=== PATIENT | male | born 1950 | race Caucasian/White ===

== ENCOUNTER → 2016-12-03 | Outpatient (CLI) | payer BC ==
[~2016-12-03] MED LIST: ACT15 PO; ASPCH81X PO; CHOL1000 PO; CLOP1TAB15 PO; GLY/5 PO; LPR25 PO; METF-384 PO; PANT1TAB48 PO; PRAV10TA39 PO; SITA100T3 PO; VITA1CAP4 PO
== END | disposition home or self-care (01) ==
LOC: C.LABSPEC 16:27
PROVIDERS: ATTEND Dermatology
DX: L98.9 Disorder of the skin and subcutaneous tissue, unspecified (principal); C44.310 Basal cell carcinoma of skin of unspecified parts of face; C44.619 Basal cell carcinoma of skin of left upper limb, including shoulder

== ENCOUNTER → 2016-12-03 | Outpatient (CLI) | payer BC | END | disposition home or self-care (01) | LOC: C.PATHSPEC 17:53 | PROVIDERS: ATTEND Dermatology | DX: C44.310 Basal cell carcinoma of skin of unspecified parts of face (principal); C44.619 Basal cell carcinoma of skin of left upper limb, including shoulder ==

== ENCOUNTER → 2017-03-04 | Outpatient (CLI) | payer BC | END | disposition home or self-care (01) | LOC: C.PATHSPEC 11:46 | PROVIDERS: ATTEND Plastic Surgery | DX: C44.310 Basal cell carcinoma of skin of unspecified parts of face (principal); C44.519 Basal cell carcinoma of skin of other part of trunk ==

== ENCOUNTER 2019-03-25 12:51 | Inpatient (IN) ==
[2019-03-25] MEDS ORDERED: SODIUM CHLORIDE 0.9% 250 ML IV PRN (14:00)
[2019-03-25] MEDS ORDERED: SODIUM CHLORIDE 0.9% 1000ML 1,000 ML IV SCH (14:00)
[2019-03-25] MEDS ORDERED: PANTOprazole 80 MG in DEXTROSE 5% 100 ML IV STA (14:05)
[2019-03-25 14:19] LABS: Mean Corpuscular Hgb Conc 33.1 g/dL (32-36)
[2019-03-25 14:27] LABS: Hematocrit (blood only) 33.8 % (42-52); Hemoglobin 11.2 g/dL (14.0-18.0); Mean Corpuscular Hemoglobin 30.4 pg (25-34); Mean Corpuscular Volume 91.8 fL (80-100); RDW Coefficient of Variation 16.1 % (11.5-14.5); RDW Standard Deviation 53.1 fL (36.4-46.3); Red Blood Count 3.68 M/uL (4.7-6.1); White Blood Count 10.69 K/uL (4.8-10.8)
[2019-03-25 14:38] LABS: Partial Thromboplastin Ratio 0.9; Partial Thromboplastin Time 23.3 Seconds (21.0-31.0); Prothrombin Time 10.5 Seconds (9.0-12.0)
[2019-03-25 14:47] LABS: Basophils # (auto) 0.02 K/uL (0-0.2); Basophils % (auto) 0.2 %; Eosinophils # (auto) 0.08 K/uL (0-0.5); Eosinophils % (auto) 0.7 %; Immature Granulocytes # (auto) 0.04 K/uL (0.00-0.02); Immature Granulocytes % (auto) 0.4 %; Lymphocytes % (auto) 21.5 %; Monocytes # (auto) 0.82 K/uL (0.11-0.59); Monocytes % (auto) 7.7 %; Neutrophils # (auto) 7.43 K/uL (1.4-6.5); Neutrophils % (auto) 69.5 %; Platelet Count 137 K/uL (130-400); Platelet Estimate Normal (Normal)
[2019-03-25 14:52] LABS: Alanine Aminotransferase 14 U/L (12-78); Albumin Globulin Ratio 0.9 (0.9-2); Albumin Level 3.2 gm/dl (3.4-5.0); Alkaline Phosphatase 83 U/L (45-117); Aspartate Aminotransferase 9 U/L (15-37); BUN Creatinine Ratio 24.6 (10-20); Bilirubin,Total 0.3 mg/dl (0.2-1); Blood Urea Nitrogen 25 mg/dl (7-18); Calcium 9.2 mg/dl (8.5-10.1); Carbon Dioxide 23 mmol/L (21-32); Chloride 107 mmol/L (98-107); Creatinine Clr Calc Pharmacy 88.1 ml/min; Est GFR (African American) 85.5; Est GFR (Non-African American) 73.8; Globulin 3.4 gm/dl (2.5-4.0); Glucose 300 mg/dl (70-99); Potassium 4.3 mmol/L (3.5-5.1); Sodium 138 mmol/L (136-145); Total Protein 6.6 gm/dl (6.4-8.2); Troponin I < 0.015 ng/ml (0-0.045)
[2019-03-25] MEDS: PANTOprazole 40 MG in DEXTROSE 5% 100 ML IV SCH ×2 (14:54→20:05)
[2019-03-25] MEDS ORDERED: IOVERSOL 100ml IV PRN (15:16)
--- NOTE | 2019-03-25 15:29 | CT Scan Report ---
CT abd pelvis IV con only CT DOSE: 1385.76 mGy.cm HISTORY: Pain lower abd pain TECHNIQUE: Multiaxial CT images of the abdomen and pelvis were performed following the use of intrave nous contrast. A dose lowering technique was utilized adhering to the principles of ALARA. COMPARISON STUDY: 08/05/2013 FINDINGS: Minimal dependent basilar atelectasis. Prior cholecystectomy. Liver spleen and pancreas are unremarkable. Pancreas is patent fatty replaced. Stable upper pole left renal cyst. 2 mm nonobstructing cortical calcification lower aspect right kidn ey. No evidence for hydronephrosis. Bladder is midline. No significant free fluid within the soft tissue pelvis. Bowel pattern is nonobst ructive. IMPRESSION: No acute process in the abdomen or pelvis. No significant change from the prior study. The above report was generated using voice recognition software. It may contain grammatical, syntax or spelling errors. Electronically signed by: Malvin Orozco M.D. 03/25/2019 3:28 PM
--- NOTE | 2019-03-25 17:17 | History & Physical Report ---
Date of Service March 25, 2019 Assessment & Plan (1) GI bleed: Pt is 68 y/o M with PMH CAD s/p CARMEL to RCA in 2010, s/p CARMEL to RCA, LAD on 03/18/[address] Baptiste at [facility] [place], CHF, DM II, h/o GI bleed presented to ER with complaint of melena x 5 days. Patient reports daily BM formed black color st ool. Reported some SOB with walking today. Denies dizziness, syncope, CP. Outpatient records reviewed with Hgb: 15 on 03/19/19, Hgb:13 on 03/23/19, Hgb:12.5 on 03/24/19 Today In ER pt afebrile, P: 80, R: 18, BP: 129/68. No leukocytosis. H/H: 11.2/33, BUN: 25, Cr: 1.0, GFR: 73 CT Abd/pelvis: No acute process in the abdomen or pelvis. No significant change from the prior study. -In ER Hemoccult positive black color stool reported -In ER Protonix bolus and drip started -Continue Protonix drip -NPO midnight -Type and cross PRBCs and hold, transfuse as needed -Repeat H&H tonight -GI consult - spoke with staff combat information center officer MEDICAL CLERK who communicated also with Dr Sanchez. Suggest PPI drip and plan for scope tomorrow. Did request cardiology consult -Will continue aspirin and Plavix as pt with recent CARMEL placement 1 week ago -Monitor CBC, BMP (2) CAD (coronary artery disease): CAD s/p CARMEL to RCA in 2010, s/p CARMEL to RCA, LAD on 03/18/[address] Baptiste at [facility] [place] Reported post stenting CP which has since resolved. Denies further CP. Troponin negative, no acute EKG changes -Continue Plavix, aspirin, metoprolol, statin -Cardiology consult (3) Diabetes mellitus, type II: A1c: 8.6 on 03/19/19 -Hold metformin, sitagliptin, pioglitazone -Basal bolus insulin per protocol (4) Tobacco use: -Pt counselled on smoking cessation -Denies nicotine patch DVT Prophylaxis -SCDs with melena Full Code as per discussion with pt Follows with Chapito Cano PA-C in [place] for routine care Pt was seen and care coordinated with Dr López. See addendum History of Present Illness Chief Complaint: Melena Primary Care Provider: Chapito Cano Pt is 68 y/o M with PMH CAD s/p CARMEL to RCA in 2010, s/p CARMEL to RCA, LAD on 03/18/[address] Baptiste at [facility] [place], CHF, DM II, h/o GI bleed presented to ER with complaint of melena x 5 days. Patient reports daily BM formed black color stool. Denies abdominal pain, nausea, vomiting, diarrhea. Patient on Plavix and aspirin, denies NSAID or ETOH use. Patient reports was on iron in past however stopped taking it but started resuming iron once daily 1 week ago. Patient reports today with some shortness of breath with walking into ER. Denies dizziness, syncope. Patient reports chest pain after stent placement on 03/18/2019 however that has resolved. Patient was seen at [facility] ER on 03/21/2019 f or melena at that time Hgb:14 and it was recommended patient be admitted however patient left AMA. He was set up with GI and was to have endoscopy 03/23/2019 however procedure was canceled by anesthesiologist. With patient's continued melena it was recommended to patient to go to [facility] [place] ER and patient reports he sat in waiting room for numerous hours and ended up leaving prior to being seen. 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 Allergies Allergy/AdvReac Type Severity Reaction Status Date / Time morphine AdvReac Mild localized Verified 06/09/18 05:50 rash ta injection site one time Home Medications Home Medications Medication Instructions Recorded Confirmed Type Januvia 100 mg PO QPM 05/19/18 03/25/19 History aspirin [Aspir-81] 81 mg PO QAM 05/19/18 03/25/19 History metformin 1,000 mg PO BID 05/19/18 03/25/19 History metoprolol tartrate 25 mg PO BID 05/19/18 03/25/19 History nitroglycerin 0.4 mg SUBLINGUAL DIRECTED PRN 05/19/18 03/25/19 History omega 8-ybq-gdl-fish oil [Fish Oil] 1 cap PO QAM 05/19/18 03/25/19 History clopidogrel 75 mg tablet 75 mg PO QAM tab 02/14/19 03/25/19 History pantoprazole 40 mg tablet,delayed 40 mg PO QAM #30 tab 02/14/19 03/25/19 History release ferrous sulfate 325 mg PO DAILY 03/25/19 03/25/19 History pioglitazone 30 mg PO QAM 03/25/19 03/25/19 History pravastatin 40 mg PO QPM 03/25/19 03/25/19 History Past Med/Surg History Medical History CAD (coronary artery disease) CARMEL TO RCA x 1 in 2010. CARMEL to RCA, LAD on 03/08/19 at [facility] [place] by Dr Baptiste COPD (chronic obstructive pulmonary disease) no inhalers Diabetes mellitus, type II History of carotid artery stenosis S/P R CEA 2013 [facility]. Still follows closely with Dr. Cummings, has yearly imaging. History of kidney stones History of skin cancer S/P RESECTION Hyperlipidemia Spinal stenosis LOWER BACK Tobacco use Surgical History History of cardiac cath S/P CARMEL X 1 TO RCA (12/2010) CARMEL to RCA, LAD on 03/08/19 at [facility] [place] by Dr Baptiste History of colonoscopy History of endoscopy History of laparoscopic cholecystectomy History of repair of right rotator cuff History of right-sided carotid endarterectomy 2013 at [facility]. Status post Mohs surgery Family History Father History of lung cancer Mother History of skin cancer Social History Preferred Language: Welsh Communication Ability: Effective Daycare Worker Required: No Beliefs That Will Affect Care: None marital status: Current Living Situation: Spouse Other Information That Helps Us Care for You: No Feels Safe at Home: Yes Safety Concerns: Feels Safe At This Time Smoking Status: Current every day smoker Tobacco Type: cigarettes ; Cigarettes Per Day: 20 ; Tobacco Cessation Education Requested by Patient: No Hx Alcohol Use: No Hx Substance Use: No Review of Systems Review of Systems: All systems reviewed & are unremarkable except as noted in HPI & below Physical Exam Physical Exam: General: no acute distress, obese Head: normocephalic, atraumatic Eyes: PERRL, EOM's intact, pale conjunctiva, anicteric ENT: normal inspection external ears, nose, mucous membranes moist Neck: supple, trachea midline, non-tender Lungs: clear, no respiratory distress, no wheezing/rhonchi/rales CV: RRR, no murmur, no pretibial edema Abd: normal BS, soft, protuberant, non-tender to palpation Ext: no cyanosis, no calf tenderness Neuro: A&O x 3, no focal deficits noted, normal affect Skin: warm, dry, pale Results & Data Vital Signs (Past 12 Hours) Vital Signs Temp Pulse Resp BP Pulse Ox 03/25/19 15:31 84 18 03/25/19 15:30 85 15 116/65 03/25/19 15:01 84 14 94 03/25/19 15:00 81 16 129/71 94 03/25/19 14:31 81 15 95 03/25/19 14:30 81 16 127/65 95 03/25/19 14:08 82 16 112/52 L 94 03/25/19 14:00 82 13 03/25/19 13:53 81 14 96 03/25/19 13:51 81 15 132/71 93 03/25/19 13:12 36.7 C 80 18 129/68 96 Laboratory Results Short CBC 03/25/19 Range/Units 11:40 WBC 10.69 (4.8-10.8) K/uL Hgb 11.2 L (14.0-18.0) g/dL Hct 33.8 L (42-52) % Plt Count 137 (130-400) K/uL BMP 03/25/19 11:40 Sodium 138 Potassium 4.3 Chloride 107 Carbon Dioxide 23 BUN 25 H Creatinine 1.03 Glucose 300 H Calcium 9.2 Cardiac Enzymes 03/25/19 Range/Units 11:40 Troponin I < 0.015 (0-0.045) ng/ml Liver Function 03/25/19 Range/Units 11:40 Total Bilirubin 0.3 (0.2-1) mg/dl AST 9 L (15-37) U/L ALT 14 (12-78) U/L Alkaline Phosphatase 83 (45-117) U/L Albumin 3.2 L (3.4-5.0) gm/dl Diagnostic Findings CT ABD/PELVIS: IMPRESSION: No acute process in the abdomen or pelvis. No significant change from the prior study. ECG Rate (beats per minute): 78 Rhythm: sinus rhythm Code Status & VTE Plan VTE Prophylaxis Plan VTE Prophylaxis will be ordered: Yes Supervising Physician Co-Signing Physician Notes I have seen and examined the patient and have discussed the case with the provider above. I agree with the assessment and plan as stated with the following exceptions. 68 yo M with CAD and recent CARMEL placement one week ago presents with several days of melena. Denies abdominal pain, but is pale and lightheadedness is reported. Multiple attempts to see a physician regarding this issue this week, but unsuccessful. Currently he is not continuing to bleed, is HD stable and afebrile and just ate a tray of clear liquids without issue. He is hoping for a scope tomorrow, as he is familiar with the process with his h/o AVMs that were recently clipped in November. Physical exam reveals an obese man in no acute distress. Abdomen is soft, nontender and nondistended. Rectal exam was deferred. He has clear lungs to auscultation and heart exam reveals a normal S1/2 without evidence of murmur, peripheral edema, or JVD. He appears euvolemic. Hold blood for now with a threshold to transfuse when <8. Trend H/H overnight. GI is aware and will make further recommendations in am. Cont protonix drip. DO Rene (1) GI bleed GI bleed type/associated pathology: unspecified gastrointestinal hemorrhage type Qualified Code(s): K92.2 - Gastrointestinal hemorrhage, unspecified
[2019-03-25] MEDS ORDERED: GLUCOSE 10 TABS/TUBE PO PRN (18:49)
[2019-03-25] MEDS ORDERED: DEXTROSE 50% 50 ML SYRINGE IV PRN (18:49)
[2019-03-25] MEDS ORDERED: GLUCOSE 40% GEL 15 GM TUBE PO PRN (18:49)
[2019-03-25] MEDS ORDERED: CARBOHYDRATES FOR HYPOGLYCEMIA PO PRN (18:49)
[2019-03-25] MEDS ORDERED: ACETAMINOPHEN 325 MG TAB PO PRN (18:49)
[2019-03-25] MEDS ORDERED: NITROGLYCERIN SL 0.4 MG/TAB TAB SL PRN (18:49)
[2019-03-25] MEDS ORDERED: GLUCAGON FOR INJ 1 MG VIAL SQ PRN (18:49)
--- NOTE | 2019-03-25 18:49 | Emergency Department Note ---
Entered by Dorothy Fernandez acting as a scribe for History of Present Illness General Chief complaint: Rectal Bleed Stated complaint: RECTAL BLEED Source: patient History of Present Illness Onset (ago): day(s) 6 Location: abdomen Pain Consistency: + other (persistent) Maximum Pain Intensity: 4 Quality: + other (rectal bleeding) Associated symptoms: + other (positive black stools; positive abdominal discomfort ) The patient is a 68 year old male with PMHx of VT, diabetes, anemia, and carotid arterial disease who presents to the Emergency Room with complaints of persistent rectal bleeding that began 6 days prior to arrival. The patient states that he was discharged from [facility] 6 days ago after have 3 cardiac stents placed the day before. The patient states that the day of his discharge he began to have black stools. The patient reports lower abdominal discomfort during this time. He states that he went to [place] yesterday and got blood work but was never evaluated and never got the results of this. The patient states that last November he was scoped where "5 bleeds were found and clipped". Home Medications Home Medications Medication Instructions Recorded Confirmed Type Januvia 100 mg PO QPM 05/19/18 03/25/19 History aspirin [Aspir-81] 81 mg PO QAM 05/19/18 03/25/19 History metformin 1,000 mg PO BID 05/19/18 03/25/19 History metoprolol tartrate 25 mg PO BID 05/19/18 03/25/19 History nitroglycerin 0.4 mg SUBLINGUAL DIRECTED PRN 05/19/18 03/25/19 History omega 9-lak-gej-fish oil [Fish Oil] 1 cap PO QAM 05/19/18 03/25/19 History clopidogrel 75 mg tablet 75 mg PO QAM tab 02/14/19 03/25/19 History pantoprazole 40 mg tablet,delayed 40 mg PO QAM #30 tab 02/14/19 03/25/19 History release ferrous sulfate 325 mg PO DAILY 03/25/19 03/25/19 History pioglitazone 30 mg PO QAM 03/25/19 03/25/19 History pravastatin 40 mg PO QPM 03/25/19 03/25/19 History Allergies Allergy/AdvReac Type Severity Reaction Status Date / Time morphine AdvReac Mild localized Verified 06/09/18 05:50 rash ta injection site one time Past Med/Surg History Medical History CAD (coronary artery disease) CARMEL TO RCA x 1 in 2010. CARMEL to RCA, LAD on 03/08/19 at [facility] by Dr Baptiste COPD (chronic obstructive pulmonary disease) no inhalers Diabetes mellitus, type II History of carotid artery stenosis S/P R CEA 2013 [facility]. Still follows closely with Dr. Cummings, has yearly imaging. History of kidney stones History of skin cancer S/P RESECTION Hyperlipidemia Spinal stenosis LOWER BACK Tobacco use Surgical History History of cardiac cath S/P CARMEL X 1 TO RCA (12/2010) CARMEL to RCA, LAD on 03/08/19 at [facility] by Dr Baptiste History of colonoscopy History of endoscopy History of laparoscopic cholecystectomy History of repair of right rotator cuff History of right-sided carotid endarterectomy 2013 at [facility]. Status post Mohs surgery Family History Father History of lung cancer Mother History of skin cancer Social History Preferred Language: Sierra Leonean Communication Ability: Effective Mineral Mixer Required: No Beliefs That Will Affect Care: None Current Living Situation: Spouse Feels Safe at Home: Yes Smoking Status: Current every day smoker Tobacco Type: cigarettes ; Cigarettes Per Day: 1 PPD ; Hx Alcohol Use: No Hx Substance Use: No Review of Systems See HPI for pertinent positives & negatives. and A total of 10 systems reviewed and were otherwise negative Physical Exam Vital Signs Vital Signs - 24 hr 03/25/19 13:12 03/25/19 13:51 03/25/19 13:53 Temperature 36.7 C Temperature Source Oral Pulse Rate 80 81 81 Pulse Rate from SpO2 Sensor 81 80 Respiratory Rate 18 15 14 Respiratory Effort / Characteristics Non-Labored Spontaneous Respiratory Depth Normal Respiratory Pattern Regular Blood Pressure 129/68 132/71 Blood Pressure Mean 88 91 Blood Pressure Position Sitting Pulse Oximetry 96 93 96 Oxygen Delivery Method Room Air Sepsis Recent Fever Within 48 Hours No Sepsis New/Unexplained Change in Mental Status No Sepsis Action Taken by Nursing No Action Required 03/25/19 14:00 03/25/19 14:08 03/25/19 14:30 Temperature Temperature Source Pulse Rate 82 82 81 Pulse Rate from SpO2 Sensor 82 81 Respiratory Rate 13 16 16 Respiratory Effort / Characteristics Respiratory Depth Respiratory Pattern Blood Pressure 112/52 L 127/65 Blood Pressure Mean 70 93 Blood Pressure Position Pulse Oximetry 94 95 Oxygen Delivery Method Sepsis Recent Fever Within 48 Hours Sepsis New/Unexplained Change in Mental Status Sepsis Action Taken by Nursing 03/25/19 14:31 03/25/19 15:00 03/25/19 15:01 Temperature Temperature Source Pulse Rate 81 81 84 Pulse Rate from SpO2 Sensor 81 81 83 Respiratory Rate 15 16 14 Respiratory Effort / Characteristics Respiratory Depth Respiratory Pattern Blood Pressure 129/71 Blood Pressure Mean 100 Blood Pressure Position Pulse Oximetry 95 94 94 Oxygen Delivery Method Sepsis Recent Fever Within 48 Hours Sepsis New/Unexplained Change in Mental Status Sepsis Action Taken by Nursing 03/25/19 15:30 03/25/19 15:31 03/25/19 16:00 Temperature Temperature Source Pulse Rate 85 84 84 Pulse Rate from SpO2 Sensor Respiratory Rate 15 18 15 Respiratory Effort / Characteristics Respiratory Depth Respiratory Pattern Blood Pressure 116/65 118/67 Blood Pressure Mean 81 84 Blood Pressure Position Pulse Oximetry Oxygen Delivery Method Sepsis Recent Fever Within 48 Hours Sepsis New/Unexplained Change in Mental Status Sepsis Action Taken by Nursing 03/25/19 16:01 03/25/19 16:30 03/25/19 16:31 Temperature Temperature Source Pulse Rate 86 86 85 Pulse Rate from SpO2 Sensor Respiratory Rate 15 22 20 Respiratory Effort / Characteristics Respiratory Depth Respiratory Pattern Blood Pressure 144/66 H Blood Pressure Mean 105 Blood Pressure Position Pulse Oximetry Oxygen Delivery Method Sepsis Recent Fever Within 48 Hours Sepsis New/Unexplained Change in Mental Status Sepsis Action Taken by Nursing 03/25/19 17:00 03/25/19 17:01 Temperature Temperature Source Pulse Rate 85 83 Pulse Rate from SpO2 Sensor Respiratory Rate 18 19 Respiratory Effort / Characteristics Respiratory Depth Respiratory Pattern Blood Pressure 122/66 Blood Pressure Mean 71 Blood Pressure Position Pulse Oximetry Oxygen Delivery Method Sepsis Recent Fever Within 48 Hours Sepsis New/Unexplained Change in Mental Status Sepsis Action Taken by Nursing GENERAL: Sitting up in bed, ill-appearing, pale, non-toxic. EYE EXAM: normal conjunctiva OROPHARYNX: no exudate, no erythema, lips, buccal mucosa, and tongue normal and mucous membranes are moist NECK: supple, no nuchal rigidity, no adenopathy, non-tender LUNGS: Clear to auscultation. Normal chest wall mechanics HEART: no murmurs, S1 normal and S2 normal ABDOMEN: abdomen soft, non-tender, normo-active bowel sounds, no masses, no rebound or guarding. RECTAL: Dark heme positive stool. BACK: Back is symmetrical on inspection and there is no deformity, no midline tenderness, no CVA tenderness. SKIN: no rashes and no bruising UPPER EXTREMITIES: upper extremities are grossly normal. LOWER EXTREMITIES: No pitting edema. NEURO EXAM: Normal sensorium, cranial nerves II-XII grossly intact, normal speech, no gross weakness of arms, no gross weakness of legs. Course Course ED COURSE: Vital signs were reviewed and showed normal. The patients medical record was reviewed The above diagnostic studies were performed and reviewed. ED treatments and interventions as stated above. 1355: The patient was evaluated in room C10. A complete history and physical examination was performed. 1417: I obtained blood consent from the patient. 1510: The psychiatric community case manager received a phone call that the patient made some suicidal statements. She will go to evaluate the patient. 1542: Upon reevaluation, the patient is resting comfortably. I discussed my findings with the patient and he understands and agrees with the treatment plan. Based on the patients age, coexisting illnesses, exam and lab findings the decision to treat as an inpatient was made. The patient remained stable while under my care. 1552: The patient will be evaluated for further management. I discussed the case with Reyna Wadsworth PA-C who accepts the patient for further evaluation under Dr. Hawkins Hospitalist service. Administered Medications Pantoprazole Sodium 40 mg/ (Dextrose) 100 mls @ 20 mls/hr IV Q5H RIVER Stop: 03/25/19 19:19 Last Admin: 03/25/19 14:54 Dose: 20 mls/hr Documented by: [id number] Ioversol (Optiray 320 100ml) 94 ml IV ONCE PRN PRN Reason: Interaction Checking Stop: 03/29/19 15:15 Last Admin: 03/25/19 15:17 Dose: 94 ml Documented by: [id number] Discontinued Medications Sodium Chloride (Nss 1000ml) 1,000 mls @ 999 mls/hr IV .Q1H1M RIVER Stop: 03/25/19 15:00 Last Infusion: 03/25/19 15:54 Dose: 0 mls/hr Documented by: [id number] Admin: 03/25/19 14:53 Dose: 999 mls/hr Documented by: [id number] Pantoprazole Sodium 80 mg/ (Dextrose) 120 mls @ 480 mls/hr IV NOW STA Stop: 03/25/19 14: Last Infusion: 03/25/19 15:55 Dose: 0 mls/hr Documented by: [id number] Admin: 03/25/19 14:54 Dose: 480 mls/hr Documented by: [id number] Medical Decision Making Differential Diagnosis Differential diagnosis includes etiologies such as diverticulosis, AVM, coagulopathy, colitis, inflammatory bowel disease, malignancy, Gladis-Rangel tear, esophagitis, peptic ulcer disease, variceal bleed, gastritis, epistaxis, fissure, hemorrhoids, as well as others were entertained. Medical Records Attestation: I reviewed the patient's medical records. Home Medications Current Medication List: was personally reviewed by me Laboratory Data Attestation: I reviewed the patient's lab results. Result diagrams: 03/25/19 11:40 03/25/19 11:40 Lab Results 03/25/19 03/25/19 03/25/19 Range/Units 11:40 11:40 11:40 WBC 10.69 (4.8-10.8) K/uL RBC 3.68 L (4.7-6.1) M/uL Hgb 11.2 L (14.0-18.0) g/dL Hct 33.8 L (42-52) % MCV 91.8 (80-100) fL MCH 30.4 (25-34) pg MCHC 33.1 (32-36) g/dL RDW Std Deviation 53.1 H (36.4-46.3) fL RDW Coeff of Harper 16.1 H (11.5-14.5) % Plt Count 137 (130-400) K/uL Immature Gran % (Auto) 0.4 % Neut % (Auto) 69.5 % Lymph % (Auto) 21.5 % [place]air % (Auto) 7.7 % Eos % (Auto) 0.7 % Baso % (Auto) 0.2 % Immature Gran # (Auto) 0.04 H (0.00-0.02) K/uL Neut # (Auto) 7.43 H (1.4-6.5) K/uL Lymph # (Auto) 2.30 (1.2-3.4) K/uL St[place] Clair # (Auto) 0.82 H (0.11-0.59) K/uL Eos # (Auto) 0.08 (0-0.5) K/uL Baso # (Auto) 0.02 (0-0.2) K/uL Platelet Estimate Normal (Normal) PT 10.5 (9.0-12.0) Seconds INR 1.0 (0.9-1.1) APTT 23.3 (21.0-31.0) Seconds PTT Ratio 0.9 Sodium 138 (136-145) mmol/L Potassium 4.3 (3.5-5.1) mmol/L Chloride 107 (98-107) mmol/L Carbon Dioxide 23 (21-32) mmol/L Anion Gap 7.0 (3-11) BUN 25 H (7-18) mg/dl Creatinine 1.03 (0.6-1.4) mg/dl Est Cr Clr Drug Dosing 88.1 ml/min Est GFR ( Amer) 85.5 Est GFR (Non-Af Amer) 73.8 BUN/Creatinine Ratio 24.6 H (10-20) Glucose 300 H (70-99) mg/dl Calcium 9.2 (8.5-10.1) mg/dl Total Bilirubin 0.3 (0.2-1) mg/dl AST 9 L (15-37) U/L ALT 14 (12-78) U/L Alkaline Phosphatase 83 (45-117) U/L Troponin I < 0.015 (0-0.045) ng/ml Total Protein 6.6 (6.4-8.2) gm/dl Albumin 3.2 L (3.4-5.0) gm/dl Globulin 3.4 (2.5-4.0) gm/dl Albumin/Globulin Ratio 0.9 (0.9-2) Blood Type Antibody Screen Crossmatch 03/25/19 Range/Units 13:56 WBC (4.8-10.8) K/uL RBC (4.7-6.1) M/uL Hgb (14.0-18.0) g/dL Hct (42-52) % MCV (80-100) fL MCH (25-34) pg MCHC (32-36) g/dL RDW Std Deviation (36.4-46.3) fL RDW Coeff of Harper (11.5-14.5) % Plt Count (130-400) K/uL Immature Gran % (Auto) % Neut % (Auto) % Lymph % (Auto) % St. Clair % (Auto) % Eos % (Auto) % Baso % (Auto) % Immature Gran # (Auto) (0.00-0.02) K/uL Neut # (Auto) (1.4-6.5) K/uL Lymph # (Auto) (1.2-3.4) K/uL St. Clair # (Auto) (0.11-0.59) K/uL Eos # (Auto) (0-0.5) K/uL Baso # (Auto) (0-0.2) K/uL Platelet Estimate (Normal) PT (9.0-12.0) Seconds INR (0.9-1.1) APTT (21.0-31.0) Seconds PTT Ratio Sodium (136-145) mmol/L Potassium (3.5-5.1) mmol/L Chloride (98-107) mmol/L Carbon Dioxide (21-32) mmol/L Anion Gap (3-11) BUN (7-18) mg/dl Creatinine (0.6-1.4) mg/dl Est Cr Clr Drug Dosing ml/min Est GFR ( Amer) Est GFR (Non-Af Amer) BUN/Creatinine Ratio (10-20) Glucose (70-99) mg/dl Calcium (8.5-10.1) mg/dl Total Bilirubin (0.2-1) mg/dl AST (15-37) U/L ALT (12-78) U/L Alkaline Phosphatase (45-117) U/L Troponin I (0-0.045) ng/ml Total Protein (6.4-8.2) gm/dl Albumin (3.4-5.0) gm/dl Globulin (2.5-4.0) gm/dl Albumin/Globulin Ratio (0.9-2) Blood Type O Positive Antibody Screen NEGATIVE Crossmatch See Detail Imaging Data Radiologist's Impression: Radiology results as stated below per my review and the radiologist's interpretation: CT abd pelvis IV con only CT DOSE: 1385.76 mGy.cm HISTORY: Pain lower abd pain TECHNIQUE: Multiaxial CT images of the abdomen and pelvis were performed following the use of intravenous contrast. A dose lowering technique was utilized adhering to the principles of ALARA. COMPARISON STUDY: 08/05/2013 FINDINGS: Minimal dependent basilar atelectasis. Prior cholecystectomy. Liver s pleen and pancreas are unremarkable. Pancreas is patent fatty replaced. Stable upper pole left renal cyst. 2 mm nonobstructing cortical calcification lower aspect right kidney. No evidence for hydronephrosis. Bladder is midline. No significant free fluid within the soft tissue pelvis. Bowel pattern is nonobstructive. IMPRESSION: No acute process in the abdomen or pelvis. No significant change from the prior study. The above report was generated using voice recognition software. It may contain grammatical, syntax or spelling errors. Electronically signed by: Malvin Orozco M.D. 03/25/2019 3:28 PM ECG Data Attestation: I personally reviewed and interpreted this ECG as follows: Indication: + abdominal pain Rate (beats per minute): 78 Rhythm: + sinus rhythm ECG Intervals/blocks: + Normal QT-c ECG Leiter: + Normal ECG Findings: no PVCs Blood Pressure Blood Pressure Findings: Normal blood pressure MDM Narrative Patient is a 68-year-old male who presents the ER with a past medical history diabetes CAD with recent stents placed to [facility] for dark tarry stools which have been present since this past Thursday. Patient was recently started on Plavix. IV was established and shows no significant leukocytosis and a mild anemia at 11.2 thousand. INR was unremarkable. BMP is remarkable for glucose of 300. LFTs bilirubin and troponin was negative. Patient was typed and crossed for 4 units as he was very pale. He was never hypotensive or tachycardic. Rectal was dark tarry stools heme positive. Patient was given IV fluids and placed on Protonix drip and bolus. He was updated bedside. Discussed with the hospitalist patient was admitted for further work-up. EKG was nondiagnostic. CT abdomen pelvis showed no acute pathology as well which was performed while in the ER. Impression & Plan GI bleed, Anemia, Abdominal pain Discharge Plan Visit Data *Final* Discharge Date/Time: 03/25/19 18:02 Chief Complaint: Rectal Bleed Stated Complaint: RECTAL BLEED ED Provider: Richard Larkin Discharge Problem: GI bleed, Anemia, Abdominal pain Patient Disposition: Admitted As Inpatient Discharge Instructions Interventions: ED Discharge Assessment Last Done: 03/25/19 18:02 Discharge Problem: GI bleed Qualifiers: GI bleed type/associated pathology: unspecified gastrointestinal hemorrhage type Qualified Code(s): K92.2 - Gastrointestinal hemorrhage, unspecified Anemia Qualifiers: Anemia type: unspecified type Qualified Code(s): D64.9 - Anemia, unspecified Abdominal pain Qualifiers: Abdominal location: lower abdomen, unspecified Qualified Code(s): R10.30 - Lower abdominal pain, unspecified The scribe's documentation has been prepared under my direction and personally reviewed by me in its entirety. I confirm that the note above accurately reflects all work, treatment, procedures, and medical decision making performed by me.
[2019-03-25] MEDS: INSULIN GLARGINE SOLOSTAR 100 UNITS/ML 3 ML PEN SC SCH (20:10)
[2019-03-25] MEDS: INSULIN ASPART 100 UNITS/ML 3 ML PEN SC SCH (20:12)
[2019-03-25] MEDS: PRAVASTATIN SOD 40 MG TAB PO SCH (20:13)
[2019-03-25] MEDS: METOPROLOL TARTRATE 25 MG TAB PO SCH (20:19)
[2019-03-25 20:30] LABS: Hematocrit (blood only) 31.5 % (42-52); Hemoglobin 10.4 g/dL (14.0-18.0)
[2019-03-26] MEDS: PANTOprazole 40 MG in DEXTROSE 5% 100 ML IV SCH ×5 (01:00→21:04)
[2019-03-26 05:59] LABS: Mean Corpuscular Hgb Conc 33.8 g/dL (32-36)
[2019-03-26 06:26] LABS: BUN Creatinine Ratio 22.6 (10-20); Calcium 8.4 mg/dl (8.5-10.1); Creatinine Clr Calc Pharmacy 114.1 ml/min; Est GFR (African American) 105.6; Est GFR (Non-African American) 91.1; Potassium 3.8 mmol/L (3.5-5.1)
[2019-03-26 06:27] LABS: Hematocrit (blood only) 29.6 % (42-52); Mean Corpuscular Volume 91.6 fL (80-100); Mean Platelet Volume 12.6 fL (7.4-10.4); Platelet Count 124 K/uL (130-400); RDW Coefficient of Variation 16.2 % (11.5-14.5); RDW Standard Deviation 53.9 fL (36.4-46.3); Red Blood Count 3.23 M/uL (4.7-6.1); White Blood Count 8.26 K/uL (4.8-10.8)
[2019-03-26 06:31] LABS: Platelet Estimate Decreased (Normal)
[2019-03-26] MEDS: INSULIN ASPART 100 UNITS/ML 3 ML PEN SC SCH ×4 (08:35→21:24)
[2019-03-26] MEDS: ASPIRIN 81 MG ECTAB PO SCH ×2 (08:36→12:34)
[2019-03-26] MEDS: CLOPIDOGREL BISULFATE 75 MG TAB PO SCH ×2 (08:38→12:34)
[2019-03-26] MEDS: METOPROLOL TARTRATE 25 MG TAB PO SCH ×2 (08:38→21:25)
[2019-03-26] MEDS: INSULIN GLARGINE SOLOSTAR 100 UNITS/ML 3 ML PEN SC SCH ×2 (09:34→21:24)
--- NOTE | 2019-03-26 10:04 | Gastrointestinal Consultation ---
Date of Consultation March 26, 2019 History of Present Illness Attending Physician: Juan F Sierra MD 68 yo with h/o small bowel AVM's with presentation of obscure overt GIB in October s/p push enteroscopy and ablation, s/p recent cardiac stent for indication of "stable angina" with CARMEL x 2 in late October, now with melena and hgb drop after CARMEL placed 1 week ago. Last episode of melena was this am. BP, HGB remain stable: PE: COmfortable, NAD HEENT: pale sclera CV: RRR Resp: CTA Abd: soft Extrem: 2+ pulses A/P: H/o SB AVM's CAD s/p revasc on DAPT - Bleeding scan today. EGD/enteroscopy tomorrow. Allergies Allergy/AdvReac Type Severity Reaction Status Date / Time morphine AdvReac Mild localized Verified 06/09/18 05:50 rash ta injection site one time Home Medications Home Medications Medication Instructions Recorded Confirmed Type Januvia 100 mg PO QPM 05/19/18 03/25/19 History aspirin [Aspir-81] 81 mg PO QAM 05/19/18 03/25/19 History metformin 1,000 mg PO BID 05/19/18 03/25/19 History metoprolol tartrate 25 mg PO BID 05/19/18 03/25/19 History nitroglycerin 0.4 mg SUBLINGUAL DIRECTED PRN 05/19/18 03/25/19 History omega 6-gmn-qes-fish oil [Fish Oil] 1 cap PO QAM 05/19/18 03/25/19 History clopidogrel 75 mg tablet 75 mg PO QAM tab 02/14/19 03/25/19 History pantoprazole 40 mg tablet,delayed 40 mg PO QAM #30 tab 02/14/19 03/25/19 History release ferrous sulfate 325 mg PO DAILY 03/25/19 03/25/19 History pioglitazone 30 mg PO QAM 03/25/19 03/25/19 History pravastatin 40 mg PO QPM 03/25/19 03/25/19 History Patient History Medical History CAD (coronary artery disease) CARMEL TO RCA x 1 in 2010. CARMEL to RCA, LAD on 03/08/19 at [facility] by Dr Baptiste COPD (chronic obstructive pulmonary disease) no inhalers Diabetes mellitus, type II History of carotid artery stenosis S/P R CEA 2013 [facility]. Still follows closely with Dr. Cummings, has yearly imaging. History of kidney stones History of skin cancer S/P RESECTION Hyperlipidemia Spinal stenosis LOWER BACK Tobacco use Surgical History History of cardiac cath S/P CARMEL X 1 TO RCA (12/2010) CARMEL to RCA, LAD on 03/08/19 at [facility] by Dr Baptiste History of colonoscopy History of endoscopy History of laparoscopic cholecystectomy History of repair of right rotator cuff History of right-sided carotid endarterectomy 2013 at [facility]. Status post Mohs surgery Family History Father History of lung cancer Mother History of skin cancer Social History Preferred Language: Slovak Communication Ability: Effective Protective Officer Required: No Beliefs That Will Affect Care: None marital status: Current Living Situation: Spouse Other Information That Helps Us Care for You: No Feels Safe at Home: Yes Safety Concerns: Feels Safe At This Time Smoking Status: Current every day smoker Tobacco Type: cigarettes ; Cigarettes Per Day: 20 ; Tobacco Cessation Education Requested by Patient: No Hx Alcohol Use: No Hx Substance Use: No Results & Data Vital Signs (Past 12 Hours) Vital Signs Temp Pulse Pulse Resp BP Pulse Ox 03/26/19 08:00 86 03/26/19 07:41 36.9 C 86 20 129/76 96 03/26/19 05:49 36.8 C 84 18 107/53 L 91 03/26/19 00:45 88 03/26/19 00:25 36.5 C 70 20 102/48 L 95 03/25/19 23:56 36.6 C 70 19 102/48 L 95
--- NOTE | 2019-03-26 10:24 | Cardiology Consultation ---
Date of Consultation March 26, 2019 Assessment & Plan (1) CAD (coronary artery disease): (2) GI bleed: (3) Anemia: 68-year-old patient admitted with recurrent melanotic stools. History of intestinal AVMs requiring endoscopic treatment the past. He is scheduled for endoscopy in a.m. Patient is considered moderate perioperative cardiovascular risk. No further cardiac testing or intervention would lower his risk at this time. Agree with continuing dual antiplatelet therapy uninterrupted currently given recent implantation of drug-eluting stents. Continue beta-rusty perioperatively. Monitor hemoglobin/hematocrit daily or as needed. Smoking cessation advised. Thank you for allowing to participate in the care of your patient. History of Present Illness Reason for Consultation: Coronary disease with recent drug-eluting stent implantation 03/18/2019 Requesting Physician: Dr. Sierra Attending Physician: Juan F Sierra MD History of Present Illness 68-year-old male admitted with melena. Carries history of coronary disease with drug-eluting stent implantation to the right coronary artery 2010. Recent cardiac history significant for recurrent angina prompting nuclear stress testing demonstrating apical ischemia. Subsequent cardiac catheterization 03/18/2019 where drug-eluting stent implanted x2 to the right coronary artery and a single drug-eluting stent was implanted to the LAD. Patient notes some mild chest discomfort post procedure. Feeling well over the past few days. ECG without ischemic changes on admission. No dysrhythmias on telemetry. Reports melanotic stools x3 days. Hemoglobin trending downward. History of gastric and intestinal AVMs. He is scheduled for endoscopy in a.m. 03/27/2019. Allergies Allergy/AdvReac Type Severity Reaction Status Date / Time morphine AdvReac Mild localized Verified 06/09/18 05:50 rash ta injection site one time Home Medications Home Medications Medication Instructions Recorded Confirmed Type Januvia 100 mg PO QPM 05/19/18 03/25/19 History aspirin [Aspir-81] 81 mg PO QAM 05/19/18 03/25/19 History metformin 1,000 mg PO BID 05/19/18 03/25/19 History metoprolol tartrate 25 mg PO BID 05/19/18 03/25/19 History nitroglycerin 0.4 mg SUBLINGUAL DIRECTED PRN 05/19/18 03/25/19 History omega 9-ezv-nbn-fish oil [Fish Oil] 1 cap PO QAM 05/19/18 03/25/19 History clopidogrel 75 mg tablet 75 mg PO QAM tab 02/14/19 03/25/19 History pantoprazole 40 mg tablet,delayed 40 mg PO QAM #30 tab 02/14/19 03/25/19 History release ferrous sulfate 325 mg PO DAILY 03/25/19 03/25/19 History pioglitazone 30 mg PO QAM 03/25/19 03/25/19 History pravastatin 40 mg PO QPM 03/25/19 03/25/19 History Patient History Medical History CAD (coronary artery disease) CARMEL TO RCA x 1 in 2010. CARMEL to RCA, LAD on 03/08/19 at [facility] by Dr Baptiste COPD (chronic obstructive pulmonary disease) no inhalers Diabetes mellitus, type II History of carotid artery stenosis S/P R CEA [address] [facility]. Still follows closely with Dr. Cummings, has yearly imaging. History of kidney stones History of skin cancer S/P RESECTION Hyperlipidemia Spinal stenosis LOWER BACK Tobacco use Surgical History History of cardiac cath S/P CARMEL X 1 TO RCA (12/2010) CARMEL to RCA, LAD on 03/08/19 at [facility] by Dr Baptiste History of colonoscopy History of endoscopy History of laparoscopic cholecystectomy History of repair of right rotator cuff History of right-sided carotid endarterectomy [address] [facility]. 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 pale. HEENT: Normocephalic. Atraumatic. Conjunctiva pink, no scleral icterus. Neck: No carotid bruits, the carotid upstrokes are brisk. No JVD. No HJR Heart: Regular normal S-1 and S-2 no S-3 or S-4 gallop. No murmurs or rub appreciated. PMI is not displaced. No RV heave. Lungs: Clear bilateral without rales , rhonchi, or wheeze. Abdomen: Normal bowel sounds. Soft. Nontender. No masses or organomegaly. No abdominal bruits. Extremities: Right anterior wrist ecchymosis without hematoma. No clubbing, cyanosis, or edema. Pulses: radial=2/4, Dorsalis pedis =2/4, posterior tibial=2/4. Neuro: Cranial nerves grossly intact. No focal motor deficit. Results & Data Vital Signs (Past 12 Hours) Vital Signs Temp Pulse Pulse Resp BP Pulse Ox 03/26/19 08:00 86 03/26/19 07:41 36.9 C 86 20 129/76 96 03/26/19 05:49 36.8 C 84 18 107/53 L 91 03/26/19 00:45 88 03/26/19 00:25 36.5 C 70 20 102/48 L 95 03/25/19 23:56 36.6 C 70 19 102/48 L 95 (1) GI bleed GI bleed type/associated pathology: unspecified gastrointestinal hemorrhage type Qualified Code(s): K92.2 - Gastrointestinal hemorrhage, unspecified (2) Anemia Anemia type: unspecified type Qualified Code(s): D64.9 - Anemia, unspecified
--- NOTE | 2019-03-26 14:38 | Nuclear Medicine Report ---
NM GI bleeding HISTORY: H/o arteriovenous malformations now melena TECHNIQUE: Immediately following the intravenous administration of 25.7 mCi of technetium 99m UltraTa g, dynamic abdominal imaging was performed for a total of one hour to evaluate the bowel. COMPARISON STUDY: Abdomen and pelvis CT 03/25/2019. FINDINGS: There is a subtle focus of radiotracer best seen on images 55 through 84 which extends from the left upper quadrant to the mid abdomen. This likely resides within a small bowel loop given the central location and favors a mid jejunal loop. Therefore, this suggests an active GI bleed. IMPRESSION: Above findings consistent with an active GI bleed likely located within the small bowel (mid jejunum) .. Electronically signed by: Christofer Brock M.D. 03/26/2019 2:37 PM
--- NOTE | 2019-03-26 15:51 | Hospitalist Progress Note ---
Date of Service March 26, 2019 Assessment & Plan (1) GI bleed: Pt is 68 y/o M with PMH CAD s/p CARMEL to RCA in 2010, s/p CARMEL to RCA, LAD on 03/18/[address] Baptiste at [facility], CHF, DM II, h/o GI bleed presented to ER with complaint of melena x 5 days. Patient reports daily BM formed black color s tool. Reported some SOB with walking. Denies dizziness, syncope, CP. Outpatient records reviewed with Hgb: 15 on 03/19/19, Hgb:13 on 03/23/19, Hgb:12.5 on 03/24/19 On admission, In ER pt afebrile, P: 80, R: 18, BP: 129/68. No leukocytosis. H/H: 11.2/33, BUN: 25, Cr: 1.0, GFR: 73 CT Abd/pelvis: No acute process in the abdomen or pelvis. No significant change from the prior study. -In ER Hemoccult positive black color stool reported -In ER Protonix bolus and drip started -Continue Protonix drip -NPO midnight, clear liquid prior -Type and cross PRBCs and hold, transfuse as needed, goal Hgb >8 -Cont. to monitor H&H -GI consulted - plan to undergo EGD w/Dr Sanchez tomorrow (03/27). Cont. PPI drip. Cardiology consult requested. -Will continue aspirin and Plavix as pt with recent CARMEL placement 1 week ago -Monitor CBC, BMP (2) CAD (coronary artery disease): CAD s/p CARMEL to RCA in 2010, s/p CARMEL to RCA, LAD on 03/18/[address] Baptiste at [facility] Reported post stenting CP which has since resolved. Denies further CP. Troponin negative, no acute EKG changes -Continue Plavix, aspirin, metoprolol, statin -Cardiology consulted (3) Diabetes mellitus, type II: A1c: 8.6 on 03/19/19 -Hold metformin, sitagliptin, pioglitazone -Basal bolus insulin per protocol (4) Tobacco use: -Pt counselled on smoking cessation -Denies nicotine patch DVT Prophylaxis -SCDs with melena Full Code as per discussion with pt Follows with Chapito Cano PA-C in [place] for routine care Subjective Patient sitting up in a chair, in no acute distress, pleasant. Denies any fevers, chills, chest pain, shortness of breath, dizziness, lightheadedness. Also denies any abdominal pain, nausea or vomiting. Well aware of the upcoming procedure w/ GI, planned for tomorrow. Hopeful to get a control of the bleeding and return to work soon. Review of Systems Review of Systems: All systems reviewed & are unremarkable except as noted in HPI & below Constitutional: no fever and no chills Respiratory: no cough, no dyspnea and no pain on inspiration Cardiovascular: no chest pain, no dyspnea on exertion and no palpitations Gastrointestinal: no abdominal pain, no nausea and no vomiting Physical Exam Physical Exam: General: Elderly obese male, sitting in a chair, in no acute distress Head: normocephalic, atraumatic Eyes: PERRL, EOMI, pale conjunctiva, anicteric ENT: normal inspection external ears, nose, mucous membranes moist Neck: supple, trachea midline, non-tender Lungs: clear, no respiratory distress, no wheezing/rhonchi/rales CV: RRR, no murmur, no pretibial edema Abd: normal BS, soft,obese, non-tender to palpation, no guarding Ext: no cyanosis, no calf tenderness, moves all 4 extremities spontaneously Neuro/Psych: A&O x 3,normal affect, speech fluent, no facial asymmetry, moves all 4 extremities spontaneously and without difficulty Skin: warm, dry, pale Results & Data Vital Signs (Past 12 Hours) Vital Signs Temp Pulse Pulse Resp BP Pulse Ox 03/26/19 15:17 37.1 C 71 18 103/63 93 03/26/19 12:02 36.8 C 74 20 132/69 96 03/26/19 08:00 86 03/26/19 07:41 36.9 C 86 20 129/76 96 03/26/19 05:49 36.8 C 84 18 107/53 L 91 Laboratory Results 03/26/19 03/26/19 03/26/19 Range/Units 11:28 07:29 05:46 WBC (4.8-10.8) K/uL RBC (4.7-6.1) M/uL Hgb (14.0-18.0) g/dL Hct (42-52) % MCV (80-100) fL MCH (25-34) pg MCHC (32-36) g/dL RDW Std Deviation (36.4-46.3) fL RDW Coeff of Harper (11.5-14.5) % Plt Count (130-400) K/uL MPV (7.4-10.4) fL Platelet Estimate (Normal) Sodium (136-145) mmol/L Potassium (3.5-5.1) mmol/L Chloride (98-107) mmol/L Carbon Dioxide (21-32) mmol/L Anion Gap (3-11) BUN (7-18) mg/dl Creatinine (0.6-1.4) mg/dl Est Cr Clr Drug Dosing ml/min Est GFR ( Amer) Est GFR (Non-Af Amer) BUN/Creatinine Ratio (10-20) Glucose (70-99) mg/dl POC Glucose 229 H 210 H 193 H (70-99) Calcium (8.5-10.1) mg/dl Crossmatch 03/26/19 03/26/19 03/25/19 Range/Units 05:40 05:40 23:54 WBC 8.26 (4.8-10.8) K/uL RBC 3.23 L (4.7-6.1) M/uL Hgb 10.0 L (14.0-18.0) g/dL Hct 29.6 L (42-52) % MCV 91.6 (80-100) fL MCH 31.0 (25-34) pg MCHC 33.8 (32-36) g/dL RDW Std Deviation 53.9 H (36.4-46.3) fL RDW Coeff of Harper 16.2 H (11.5-14.5) % Plt Count 124 L (130-400) K/uL MPV 12.6 H (7.4-10.4) fL Platelet Estimate Decreased L (Normal) Sodium 140 (136-145) mmol/L Potassium 3.8 (3.5-5.1) mmol/L Chloride 111 H (98-107) mmol/L Carbon Dioxide 24 (21-32) mmol/L Anion Gap 5.0 (3-11) BUN 18 (7-18) mg/dl Creatinine 0.80 (0.6-1.4) mg/dl Est Cr Clr Drug Dosing 114.1 ml/min Est GFR ( Amer) 105.6 Est GFR (Non-Af Amer) 91.1 BUN/Creatinine Ratio 22.6 H (10-20) Glucose 185 H (70-99) mg/dl POC Glucose 192 H (70-99) Calcium 8.4 L (8.5-10.1) mg/dl Crossmatch 03/25/19 03/25/19 03/25/19 Range/Units 20:09 20:07 18:49 WBC (4.8-10.8) K/uL RBC (4.7-6.1) M/uL Hgb 10.4 L (14.0-18.0) g/dL Hct 31.5 L (42-52) % MCV (80-100) fL MCH (25-34) pg MCHC (32-36) g/dL RDW Std Deviation (36.4-46.3) fL RDW Coeff of Harper (11.5-14.5) % Plt Count (130-400) K/uL MPV (7.4-10.4) fL Platelet Estimate (Normal) Sodium (136-145) mmol/L Potassium (3.5-5.1) mmol/L Chloride (98-107) mmol/L Carbon Dioxide (21-32) mmol/L Anion Gap (3-11) BUN (7-18) mg/dl Creatinine (0.6-1.4) mg/dl Est Cr Clr Drug Dosing ml/min Est GFR ( Amer) Est GFR (Non-Af Amer) BUN/Creatinine Ratio (10-20) Glucose (70-99) mg/dl POC Glucose 323 H* 286 H (70-99) Calcium (8.5-10.1) mg/dl Crossmatch 03/25/19 03/25/19 Range/Units 17:52 13:56 WBC (4.8-10.8) K/uL RBC (4.7-6.1) M/uL Hgb (14.0-18.0) g/dL Hct (42-52) % MCV (80-100) fL MCH (25-34) pg MCHC (32-36) g/dL RDW Std Deviation (36.4-46.3) fL RDW Coeff of Harper (11.5-14.5) % Plt Count (130-400) K/uL MPV (7.4-10.4) fL Platelet Estimate (Normal) Sodium (136-145) mmol/L Potassium (3.5-5.1) mmol/L Chloride (98-107) mmol/L Carbon Dioxide (21-32) mmol/L Anion Gap (3-11) BUN (7-18) mg/dl Creatinine (0.6-1.4) mg/dl Est Cr Clr Drug Dosing ml/min Est GFR ( Amer) Est GFR (Non-Af Amer) BUN/Creatinine Ratio (10-20) Glucose (70-99) mg/dl POC Glucose 273 H (70-99) Calcium (8.5-10.1) mg/dl Crossmatch See Detail Medications Administered Current Inpatient Medications Acetaminophen (Tylenol) 650 mg PO Q4H PRN PRN Reason: Pain or Fever Stop: 04/24/19 18:48 Aspirin (Ecotrin Ectab) 81 mg PO [facility] Stop: 04/25/19 08:59 Last Admin: 03/26/19 12:34 Dose: 81 mg Documented by: Clopidogrel Bisulfate (Plavix) 75 mg PO [facility] Stop: 04/25/19 08:59 Last Admin: 03/26/19 12:34 Dose: 75 mg Documented by: Dextrose (Dextrose 50%) 25 - 50 ml IV UD PRN; Protocol PRN Reason: Hypoglycemia Protocol Stop: 04/24/19 18:48 Glucagon (Glucagen) 1 mg SQ UD PRN; Protocol PRN Reason: Hypoglycemia Protocol Stop: 04/24/19 18:48 Glucose (Dex4 Glucose) 4 - 8 tabs PO UD PRN; Protocol PRN Reason: Hypoglycemia Protocol Stop: 04/24/19 18:48 Glucose (Glucose 40%) 15 - 30 gm PO UD PRN; Protocol PRN Reason: Hypoglycemia Protocol Stop: 04/24/19 18:48 Pantoprazole Sodium 40 mg/ (Dextrose) 100 mls @ 20 mls/hr IV Q5H [facility] Stop: 04/24/19 14:19 Last Admin: 03/26/19 15:47 Dose: 20 mls/hr Documented by: Insulin Aspart (Novolog Flexpen) 0 units SC ACHS [facility] Stop: 04/24/19 20:59 Last Admin: 12/07/19 12:16 Dose: 9 units Documented by: Insulin Glargine (Lantus Solostar Pen) 0 units SC BID [facility]; Protocol Stop: 04/24/19 20:59 Last Admin: 03/26/19 09:34 Dose: Not Given Documented by: Metoprolol Tartrate (Lopressor) 25 mg PO BID [facility] Stop: 04/24/19 20:59 Last Admin: 03/26/19 08:38 Dose: 25 mg Documented by: Miscellaneous (Carbohydrates For Hypoglycemia) 15 - 30 gm PO UD PRN PRN Reason: Hypoglycemia Protocol Stop: 04/24/19 18:48 Nitroglycerin (Nitrostat) 0.4 mg SL UD PRN PRN Reason: Chest Pain Stop: 04/24/19 18:48 Pravastatin Sodium (Pravachol) 40 mg PO QPM [facility] Stop: 04/24/19 20:59 Last Admin: 03/25/19 20:13 Dose: 40 mg Documented by: (1) GI bleed GI bleed type/associated pathology: unspecified gastrointestinal hemorrhage type Qualified Code(s): K92.2 - Gastrointestinal hemorrhage, unspecified
[2019-03-26] MEDS: PRAVASTATIN SOD 40 MG TAB PO SCH (21:25)
[2019-03-27] MEDS: PANTOprazole 40 MG in DEXTROSE 5% 100 ML IV SCH ×2 (01:25→05:58)
[2019-03-27] MEDS ORDERED: MIDAZOLAM HCL 1 MG/ML 2ML VIAL ONE (07:11)
[2019-03-27] MEDS ORDERED: fentaNYL citrate 100 MCG/2 ML VIAL ONE (07:12)
--- NOTE | 2019-03-27 07:31 | Anesthesiology Consultation ---
Date of Service March 27, 2019 Assessment & Plan (1) Encounter for pre-operative examination: Chart Review Chart Review: Acceptable Risk for Surgery (patient is high risk but needs the procedure) and Patient NOT seen in Pre Admission Testing Consults Requested none cardiology is following the patient History Surgery Operation Date: 03/26/19 14:00 Proposed Procedures p EGD with Botox Dr Sanchez - Jameson Sanchez Operation Date: 03/27/19 07:30 Proposed Procedures p EGD Foreign Body Removal - Jameson Sanchez Height/Weight Height: 5 ft 11 in Weight: 115.8 kg Allergies Allergy/AdvReac Type Severity Reaction Status Date / Time morphine AdvReac Mild localized Verified 06/09/18 05:50 rash ta injection site one time Medications Home Medications Medication Instructions Recorded Confirmed Last Taken Januvia 100 mg PO QPM 05/19/18 03/25/19 06/07/18 18:00 aspirin [Aspir-81] 81 mg PO QAM 05/19/18 03/25/19 03/25/19 metformin 1,000 mg PO BID 05/19/18 03/25/19 03/25/19 metoprolol tartrate 25 mg PO BID 05/19/18 03/25/19 03/25/19 nitroglycerin 0.4 mg SUBLINGUAL DIRECTED PRN 05/19/18 03/25/19 Unknown omega 9-qyc-dap-fish oil [Fish Oil] 1 cap PO QAM 05/19/18 03/25/19 Unknown clopidogrel 75 mg tablet 75 mg PO QAM tab 02/14/19 03/25/19 03/25/19 pantoprazole 40 mg tablet,delayed 40 mg PO QAM #30 tab 02/14/19 03/25/19 03/25/19 release ferrous sulfate 325 mg PO DAILY 03/25/19 03/25/19 03/25/19 pioglitazone 30 mg PO QAM 03/25/19 03/25/19 Unknown pravastatin 40 mg PO QPM 03/25/19 03/25/19 03/24/19 Active Medications Generic Name Dose Route Start Last Admin Trade Name Freq PRN Reason Stop Dose Admin Aspirin 81 mg 03/26/19 09:00 03/26/19 12:34 Ecotrin Ectab PO 04/25/19 08:59 81 mg QAM [facility] Administration Clopidogrel Bisulfate 75 mg 03/26/19 09:00 03/26/19 12:34 Plavix PO 04/25/19 08:59 75 mg QAM [facility] Administration Pantoprazole Sodium 40 mg/ 100 mls @ 20 mls/hr 03/25/19 14:20 03/27/19 05:58 Dextrose IV 04/24/19 14:19 20 mls/hr Q5H [facility] Administration Insulin Aspart 0 units 03/25/19 21:00 03/26/19 21:24 Novolog Flexpen SC 04/24/19 20:59 Not Given ACHS [facility] Insulin Glargine 0 units 03/25/19 21:00 03/26/19 21:24 Lantus Solostar Pen SC 04/24/19 20:59 6 units BID [facility] Administration Protocol Metoprolol Tartrate 25 mg 03/25/19 21:00 03/26/19 21:25 Lopressor PO 04/24/19 20:59 25 mg BID [facility] Administration Pravastatin Sodium 40 mg 03/25/19 21:00 03/26/19 21:25 Pravachol PO 04/24/19 20:59 40 mg QPM [facility] Administration NPO Date Last Intake of Fluids: 03/26/19 Time Last Intake of Fluids: 22:00 Date Last Intake of Solids: 03/24/19 Time Last Intake of Solids: 17:00 Past Medical History Medical History CAD (coronary artery disease) CARMEL TO RCA x 1 in 2010. CARMEL to RCA, LAD on 03/08/19 at [facility] by Dr Baptiste COPD (chronic obstructive pulmonary disease) no inhalers Diabetes mellitus, type II History of carotid artery stenosis S/P R CEA 2013 [facility]. Still follows closely with Dr. Cummings, has yearly imaging. History of kidney stones History of skin cancer S/P RESECTION Hyperlipidemia Spinal stenosis LOWER BACK Tobacco use Past Family History Family History Father History of lung cancer Mother History of skin cancer Past Surgical History Surgical History History of cardiac cath S/P CARMEL X 1 TO RCA (12/2010) CARMEL to RCA, LAD on 03/08/19 at [facility] by Dr Baptiste History of colonoscopy History of endoscopy History of laparoscopic cholecystectomy History of repair of right rotator cuff History of right-sided carotid endarterectomy 2013 at [facility]. Status post Mohs surgery Social History Smoking Status: Current every day smoker tobacco type: cigarettes Smoking cigarettes per day: 20 Hx Alcohol Use: No Hx Substance Use: No substance use type: does not use Physical Exam Vital Signs Last Vital Signs Temp 36.9 C 03/27/19 04:22 Pulse 80 03/27/19 04:22 Resp 19 03/27/19 04:22 BP 134/65 03/27/19 04:22 Pulse Ox 97 03/27/19 04:22 Testing Laboratory Results 03/26/19 05:40 03/26/19 05:40 PT 10.5 Seconds (9.0-12.0) 03/25/19 11:40 INR 1.0 (0.9-1.1) 03/25/19 11:40 APTT 23.3 Seconds (21.0-31.0) 03/25/19 11:40 Blood Type O Positive 03/25/19 13:56 Antibody Screen NEGATIVE 03/25/19 13:56 03/26/19 20:17 POC Glucose 157 H Electrocardiogram Date: 03/26/19 Findings: + NSR @ (26)
--- NOTE | 2019-03-27 07:36 | Gastroenterology Progress Note ---
Date of Service March 27, 2019 Subjective Pt interviewed and examined. No events overnight. Pt without melena this am. PE unchanged from yesterday. Nuc med scan shows possible source in mid jejunum. Plan EGD and enteroscopy today. Results & Data Vital Signs (Past 12 Hours) Vital Signs Temp Pulse Resp BP Pulse Ox Pulse Ox 03/27/19 04:22 36.9 C 80 19 134/65 97 03/27/19 00:09 36.9 C 75 20 118/55 L 96 03/26/19 23:08 95
[2019-03-27] MEDS ORDERED: PROPOFOL IV EMULSION 10 MG/ML 20 ML VIAL IV ONE ×2 (07:38→08:09)
[2019-03-27] MEDS ORDERED: ONDANSETRON INJ 2 MG/ML 2 ML VIAL ONE (07:38)
[2019-03-27] MEDS ORDERED: LIDOCAINE HCL 2% 2 ML VIAL/AMP(20MG/ML) INFIL ONE ×2 (07:38)
[2019-03-27] MEDS ORDERED: ePHEDrine sulfate 50 MG/ML AMP IV PRN (08:08)
[2019-03-27] MEDS ORDERED: PHENYLEPHRINE 100MCG/ML 5ML SYR IV PRN (08:08)
[2019-03-27] MEDS ORDERED: LABETALOL HCL IV 5 MG/ML 20ML IV PRN (08:08)
[2019-03-27] MEDS ORDERED: ONDANSETRON INJ 2 MG/ML 2 ML VIAL IV PRN (08:08)
[2019-03-27] MEDS ORDERED: ATROPINE SULFATE 0.1 MG/ML 10ML SYR IV PRN (08:08)
[2019-03-27] MEDS ORDERED: fentaNYL citrate 100 MCG/2 ML VIAL IV PRN (08:08)
[2019-03-27] MEDS ORDERED: SODIUM CHLORIDE 0.9% INJ 10 ML VIAL ONE (08:14)
[2019-03-27] MEDS ORDERED: LABETALOL HCL IV 5 MG/ML 20ML IV ONE ×7 (08:24)
--- NOTE | 2019-03-27 08:27 | GI REPORT ---
Patient Name: Yobany Rios Procedure Date: 03/27/2019 7:17 AM Date of : 1950 Admit Type: Inpatient Age: 68 Gender: Male Attending MD: Jameson Sanchez MD Procedure: Upper GI endoscopy Providers: Jameson Sanchez MD Referring MD: Juan F Sierra Md Indications: Melena Medicines: See the Anesthesia note for documentation of the administered medications Complications: Pt developed narrow complex tachy during procedure that resolve with labetalol. Procedure was stopped at onset of tachycardia. Hemostasis appeared to be achieved by the time the procdure was stopped. Estimated Blood Loss: Estimated blood loss: none. Procedure: Pre-Anesthesia Assessment: - ASA Grade Assessment: IV - A patient with severe systemic disease that is a constant threat to life. After obtaining informed consent, the endoscope was passed under direct vision. Throughout the procedure, the patient's blood pressure, pulse, and oxygen saturations were monitored continuously. The Endoscope was introduced through the mouth, and advanced to the second part of duodenum. The Colonoscope was introduced through the mouth, and advanced to the proximal jejunum. The upper GI endoscopy was accomplished without difficulty. The patient tolerated the procedure well. Findings: The examined esophagus was normal. The entire examined stomach was normal. There was bilious fluid in the stomach. There was bilious fluid in the duodenal bulb and second portion of the duodenum There was an AVM in the distal duoudenum that was briskly oozing. This resolved with placement of three clips. There was a non bleeding AVM in the proximal jejunum. Two clips were placed on this site. Impression: Duodenal AVM, briskly oozing. Resolved with clip placement. Recommendation: - Discharge patient to ICU. - HGB twice daily. - Clears only today. - Oral PPI twice daily. Jameson Sanchez M.D. Jameson Sanchez MD 03/27/2019 8:27:08 AM This report has been signed electronically. Note Initiated On: 03/27/2019 7:17 AM Number of Addenda: 0 I attest to the content of the Intraoperative Record and orders documented therein, exceptions below {[id number]}
[2019-03-27] MEDS ORDERED: ACETAMINOPHEN 1000 MG/100 ML IV IV ONE (08:44)
[2019-03-27] MEDS ORDERED: ACETAMINOPHEN 1,000 MG/100 ML VIAL IV STA (08:44)
[2019-03-27] MEDS ORDERED: INSULIN ASPART PER UNIT 6 UNITS in SYRINGE 0 ML SC STA (09:01)
[2019-03-27] MEDS ORDERED: INSULIN ASPART PER UNIT ONE (09:02)
--- NOTE | 2019-03-27 09:51 | Anesthesiology Progress Note ---
Date of Service March 27, 2019 Anesthesia Post Procedure Vital Signs Vital Signs: Temp Pulse Pulse Resp BP Pulse Ox Pulse Ox 03/27/19 09:30 37 C 81 17 125/57 L 95 03/27/19 09:20 79 16 117/59 L 95 03/27/19 09:10 83 16 116/61 93 03/27/19 09:00 83 16 106/55 L 93 03/27/19 08:50 83 16 106/57 L 100 03/27/19 08:40 84 16 97/55 L 99 03/27/19 08:33 36.3 C L 85 16 84/42 L 97 03/27/19 04:22 36.9 C 80 19 134/65 97 03/27/19 00:09 36.9 C 75 20 118/55 L 96 03/26/19 23:08 95 03/26/19 19:32 36.7 C 77 18 113/59 L 92 03/26/19 15:17 37.1 C 71 18 103/63 93 03/26/19 12:02 36.8 C 74 20 132/69 96 Pain Intensity Head: Pain Intensity: 5 Chest: Pain Intensity: 3 Transfer of Care Handoff Completed per policy Notes Mental Status: alert / awake / arousable Patient Amnestic to Procedure: Yes Nausea / Vomiting: adequately controlled Pain: adequately controlled Airway Patency, RR, SpO2: stable & adequate BP & HR: stable & adequate and see Notes below Hydration State: stable & adequate Anesthetic Complications: no major complications apparent and Pt Satisfied with anesthetic care Notes: The patient recently had three CARMEL placed in his heart. He remains on dual antiplatelet therapy. The patient has a history of gastrointestinal AVMs. Dr. Sanchez clipped five of them today. During the procedure, the patient became hypertensive and tachycardic. He was treated with labetalol by the HOUSEKEEPER AND LAUNDRY ASSISTANT in the room. He then became slightly hypotensive and was treated with phenylephrine. His vital signs have been stable in the PACU with HR in the 80s and SBP in the 110s. He had some slight discomfort in his chest so a 12 lead EKG was obtained that showed NSR with no ST changes. Dr. Olsen was notified and was not concerned as long as no ST changes were noted. The patient's postop BSG was 248. He was treated with 6 units of Novolog. A recheck BSG was 240. The patient will go to the ICU for monitoring. A full report was given to Dr. Garrett.
[2019-03-27 10:20] LABS: Hematocrit (blood only) 29.9 % (42-52); Hemoglobin 9.9 g/dL (14.0-18.0)
[2019-03-27] MEDS: INSULIN ASPART 100 UNITS/ML 3 ML PEN SC SCH ×4 (10:27→19:41)
--- NOTE | 2019-03-27 10:32 | Hospitalist Progress Note ---
Date of Service March 27, 2019 Assessment & Plan (1) GI bleed: Pt is 68 y/o M with PMH CAD s/p CARMEL to RCA in 2010, s/p CARMEL to RCA, LAD on 03/18/[address] Baptiste at [facility] [place], CHF, DM II, h/o GI bleed presented to ER with complaint of melena x 5 days. Patient reports daily BM formed black color s tool. Reported some SOB with walking. Denies dizziness, syncope, CP. Outpatient records reviewed with Hgb: 15 on 03/19/19, Hgb:13 on 03/23/19, Hgb:12.5 on 03/24/19 On admission, In ER pt afebrile, P: 80, R: 18, BP: 129/68. No leukocytosis. H/H: 11.2/33, BUN: 25, Cr: 1.0, GFR: 73 CT Abd/pelvis: No acute process in the abdomen or pelvis. No significant change from the prior study. Hx of small bowel AVM's with presentation of obscure overt GIB in October s/p push enteroscopy and ablation -In ER Hemoccult positive black color stool reported -In ER Protonix bolus and drip started -Now status post upper endoscopy earlier today,03/27,with Dr Sanchez. There was AVM briskly oozing in distal duodenum, resolved with placement of 3 clips. There was also nonbleeding AVM in the proximal jejunum 2 clips were placed on the site. -cont. clear liquid diet for today -switch to PO PPI BID -Type and cross PRBCs and hold, transfuse as needed, goal Hgb >8 -current Hgb stable 9.9 -Cont. to monitor H&H twice a day -Will continue aspirin and Plavix as pt with recent CARMEL placement 1 week ago -Monitor CBC, BMP (2) CAD (coronary artery disease): CAD s/p CARMEL to RCA in 2010, s/p CARMEL to RCA, LAD on 03/18/[address] Baptiste at [facility] [place] Reported post stenting CP which has since resolved. Denies further CP. Troponin negative, no acute EKG changes -Continue Plavix, aspirin, metoprolol, statin -Cardiology consulted (3) Diabetes mellitus, type II: A1c: 8.6 on 03/19/19 -Hold metformin, sitagliptin, pioglitazone -Basal bolus insulin per protocol (4) Tobacco use: -Pt counselled on smoking cessation -Denies nicotine patch DVT Prophylaxis -SCDs with melena Full Code as per discussion with pt Follows with Chapito Cano PA-C in [place] for routine care Subjective No acute events overnight, no melena this morning, but had a dark BM yesterday evening. Nuclear medicine scan shows possible source of bleed in mid jejunum. Currently patient status post upper endoscopy earlier this morning (03/27). Hemoglobin stable, 9.9 (03/27 AM) Patient developed narrow complex tachycardia during the procedure with GI this morning, resolved with labetalol. There was AVM briskly oozing in distal duodenum, resolved with placement of 3 clips there was also a nonbleeding AVM in the proximal jejunum 2 clips were placed on the side. Recommend clear liquid diet only for today, and oral PPI. Review of Systems Review of Systems: All systems reviewed & are unremarkable except as noted in HPI & below Constitutional: no fever and no chills Respiratory: no cough, no dyspnea and no pain on inspiration Cardiovascular: no chest pain, no palpitations and no edema Gastrointestinal: + melena; no abdominal pain, no nausea and no vomiting Physical Exam Physical Exam: General: Elderly obese male, sitting in a chair, in no acute distress Head: normocephalic, atraumatic Eyes: PERRL, EOMI, pale conjunctiva, anicteric sclerae ENT: normal inspection external ears, nose, mucous membranes moist Neck: supple, trachea midline, non-tender Lungs: clear to auscultation b/l but poor air movement, no respiratory distress, no wheezing/rhonchi/rales CV: RRR, no murmur, no pretibial edema Abd: normal BS, soft,obese, non-tender to palpation, no guarding Ext: no cyanosis, no calf tenderness, moves all 4 extremities spontaneously Neuro/Psych: A&O x 3,normal affect, speech fluent, no facial asymmetry, moves all 4 extremities spontaneously and without difficulty Skin: warm, dry, pale Results & Data Vital Signs (Past 12 Hours) Vital Signs Temp Pulse Pulse Resp BP Pulse Ox Pulse Ox 03/27/19 09:30 37 C 81 17 125/57 L 95 03/27/19 09:20 79 16 117/59 L 95 03/27/19 09:10 83 16 116/61 93 03/27/19 09:00 83 16 106/55 L 93 03/27/19 08:50 83 16 106/57 L 100 03/27/19 08:40 84 16 97/55 L 99 03/27/19 08:33 36.3 C L 85 16 84/42 L 97 03/27/19 04:22 36.9 C 80 19 134/65 97 03/27/19 00:09 36.9 C 75 20 118/55 L 96 03/26/19 23:08 95 Laboratory Results 03/27/19 03/27/19 03/27/19 Range/Units 10:08 09:35 08:34 Hgb 9.9 L (14.0-18.0) g/dL Hct 29.9 L (42-52) % POC Glucose 240 H 248 H (70-99) Crossmatch 03/26/19 03/26/19 03/26/19 Range/Units 20:17 16:15 11:28 Hgb (14.0-18.0) g/dL Hct (42-52) % POC Glucose 157 H 193 H 229 H (70-99) Crossmatch 03/25/19 Range/Units 13:56 Hgb (14.0-18.0) g/dL Hct (42-52) % POC Glucose (70-99) Crossmatch See Detail Diagnostic Findings GI bleed nuclear scan (03/26/2019) FINDINGS: There is a subtle focus of radiotracer best seen on images 55 through 84 which extends from the left upper quadrant to the mid abdomen. This likely resides within a small bowel loop given the central location and favors a mid jejunal loop. Therefore, this suggests an active GI bleed. IMPRESSION: Above findings consistent with an active GI bleed likely located within the small bowel (mid jejunum). Upper GI endoscopy (03/27/2019) The examined esophagus was normal. The entire examined stomach was normal. There was bilious fluid in the stomach. There was bilious fluid in the duodenal bulb and second portion of the duodenum. There was an AVM in the distal duodenum that was briskly oozing. It is resolved with placement of 3 clips. There was a nonbleeding AVM in the proximal jejunum, 2 clips were placed on the side. Medications Administered Current Inpatient Medications Acetaminophen (Tylenol) 650 mg PO Q4H PRN PRN Reason: Pain or Fever Stop: 04/24/19 18:48 Aspirin (Ecotrin Ectab) 81 mg PO [facility] Stop: 04/25/19 08:59 Last Admin: 03/26/19 12:34 Dose: 81 mg Documented by: Clopidogrel Bisulfate (Plavix) 75 mg PO [facility] Stop: 04/25/19 08:59 Last Admin: 03/26/19 12:34 Dose: 75 mg Documented by: Dextrose (Dextrose 50%) 25 - 50 ml IV UD PRN; Protocol PRN Reason: Hypoglycemia Protocol Stop: 04/24/19 18:48 Glucagon (Glucagen) 1 mg SQ UD PRN; Protocol PRN Reason: Hypoglycemia Protocol Stop: 04/24/19 18:48 Glucose (Dex4 Glucose) 4 - 8 tabs PO UD PRN; Protocol PRN Reason: Hypoglycemia Protocol Stop: 04/24/19 18:48 Glucose (Glucose 40%) 15 - 30 gm PO UD PRN; Protocol PRN Reason: Hypoglycemia Protocol Stop: 04/24/19 18:48 Insulin Aspart (Novolog Flexpen) 0 units SC [facility] Stop: 04/24/19 20:59 Last Admin: 03/26/19 21:24 Dose: Not Given Documented by: Insulin Glargine (Lantus Solostar Pen) 0 units SC BID [facility]; Protocol Stop: 04/24/19 20:59 Last Admin: 03/26/19 21:24 Dose: 6 units Documented by: Labetalol HCl (Normodyne) 5 mg IV Q5M PRN PRN Reason: PACU Use-SBP>160 or DBP>100 Stop: 03/27/19 13:08 Metoprolol Tartrate (Lopressor) 25 mg PO BID [facility] Stop: 04/24/19 20:59 Last Admin: 03/26/19 21:25 Dose: 25 mg Documented by: Miscellaneous (Carbohydrates For Hypoglycemia) 15 - 30 gm PO UD PRN PRN Reason: Hypoglycemia Protocol Stop: 04/24/19 18:48 Nitroglycerin (Nitrostat) 0.4 mg SL UD PRN PRN Reason: Chest Pain Stop: 04/24/19 18:48 Ondansetron HCl (Zofran) 4 mg IV ONCE PRN PRN Reason: PACU Use Only-Nausea/Vomiting Stop: 03/27/19 13:08 Pravastatin Sodium (Pravachol) 40 mg PO QPM [place] Stop: 04/24/19 20:59 Last Admin: 03/26/19 21:25 Dose: 40 mg Documented by: (1) GI bleed GI bleed type/associated pathology: unspecified gastrointestinal hemorrhage type Qualified Code(s): K92.2 - Gastrointestinal hemorrhage, unspecified
[2019-03-27] MEDS: METOPROLOL TARTRATE 25 MG TAB PO SCH ×2 (10:59→19:37)
[2019-03-27] MEDS: CLOPIDOGREL BISULFATE 75 MG TAB PO SCH (11:00)
[2019-03-27] MEDS: ASPIRIN 81 MG ECTAB PO SCH (11:00)
[2019-03-27] MEDS: INSULIN GLARGINE SOLOSTAR 100 UNITS/ML 3 ML PEN SC SCH ×2 (11:01→19:40)
--- NOTE | 2019-03-27 11:36 | Cardiology Progress Note ---
Date of Service March 27, 2019 Assessment & Plan (1) CAD (coronary artery disease): (2) GI bleed: (3) Anemia: Continue dual antiplatelet therapy in addition to other cardiovascular medications as previously ordered. Monitor daily hemoglobin. Repeat ECG with any recurrent chest discomfort. Agree with continued monitoring in ICU overnight. Subjective Patient seen and examined the bedside. EGD performed earlier today with treatment of 6 AVMs per verbal report. Patient notes black stools overnight. Denies abdominal pain at this time. I was contacted by anesthesiology post procedure with concerns regarding some chest discomfort. Discomfort was transient. Patient denies chest pain currently. Repeat ECG without ST changes. He is resting comfortably without complaints. Review of Systems Review of Systems: All systems reviewed & are unremarkable except as noted in HPI & below Physical Exam Physical Exam: General: NAD, AAO x3, well nourished. pale. HEENT: Normocephalic. Atraumatic. Conjunctiva pink, no scleral icterus. Neck: No carotid bruits, the carotid upstrokes are brisk. No JVD. No HJR Heart: Regular normal S-1 and S-2 no S-3 or S-4 gallop. No murmurs or rub appreciated. PMI is not displaced. No RV heave. Lungs: Clear bilateral without rales , rhonchi, or wheeze. Abdomen: Normal bowel sounds. Soft. Nontender. No masses or organomegaly. No abdominal bruits. Extremities: Right anterior wrist ecchymosis without hematoma. No clubbing, cyanosis, or edema. Pulses: radial=2/4, Dorsalis pedis =2/4, posterior tibial=2/4. Neuro: Cranial nerves grossly intact. No focal motor deficit. Results & Data Vital Signs (Past 12 Hours) Vital Signs Temp Pulse Pulse Resp BP Pulse Ox Pulse Ox 03/27/19 09:45 36.5 C 84 20 121/89 93 95 03/27/19 09:30 37 C 81 17 125/57 L 95 03/27/19 09:20 79 16 117/59 L 95 03/27/19 09:10 83 16 116/61 93 03/27/19 09:00 83 16 106/55 L 93 03/27/19 08:50 83 16 106/57 L 100 03/27/19 08:40 84 16 97/55 L 99 03/27/19 08:33 36.3 C L 85 16 84/42 L 97 03/27/19 04:22 36.9 C 80 19 134/65 97 03/27/19 00:09 36.9 C 75 20 118/55 L 96 (1) GI bleed GI bleed type/associated pathology: unspecified gastrointestinal hemorrhage type Qualified Code(s): K92.2 - Gastrointestinal hemorrhage, unspecified (2) Anemia Anemia type: unspecified type Qualified Code(s): D64.9 - Anemia, unspecified
--- NOTE | 2019-03-27 12:08 | Critical Care Consultation ---
Date of Consultation March 27, 2019 Assessment & Plan (1) Chest pain: PLAN: Resp: Tobacco use disorder CV: Chest pain -Currently chest pain-free Coronary artery disease -Discussed with cardiology -Dual antiplatelet therapy to continue GI/Nutrition: Gastrointestinal bleeding secondary to AVMs -Clipping today by gastroenterology -Clear liquid diet Heme: Acute blood loss anemia secondary to gastrointestinal bleeding -Recently underwent tagged nuclear scan DVT prophylaxis: Recent GI intervention, chemical DVT prophylaxis relatively contraindicated in ambulatory patient -Activity orders ad micha., ambulate every shift Endocrine: ICU hyperglycemia protocol Vascular access: Peripheral IVs Code Status: Full (2) CAD (coronary artery disease): (3) Diabetes mellitus, type II: (4) Tobacco use: (5) GI bleed: History of Present Illness Attending Physician: Juan F Sierra MD Patient is a 68-year-old male who recently underwent a two-vessel drug-eluting stent placement in [employer] approximately 1 week ago who presents for ongoing gastrointestinal blood loss. Reportedly the patient was going to undergo EGD at [facility] and they felt the patient was too high risk given recent drug-eluting stents on 03/18/2019. The patient underwent EGD today which 6 clips were placed on AVMs. During the procedure the patient was reported to have gone hypertensive and tachycardic necessitating administration of labetalol. Subsequent to that the patient was borderline hypotensive and complaining of chest pain. He was also hyperglycemic and 6 units of subcutaneous insulin was administered. Given ongoing chest pain and recent drug-eluting stent he was transferred to the ICU for further evaluation and management. During my evaluation the patient is pain-free and his vital signs appear to have normalized. His biggest complaint is that he is extremely hungry and he has not eaten since approximately , he is ordered a clear liquid diet and he is understandably frustrated with this. He denies shortness of breath, he has continued to take his dual antiplatelet therapy. I discussed this case with Dr. Olsen, he has had chest pain prior to the drug-eluting stent and chest pain subsequently after the drug-eluting stent without ischemic changes on EKG. Allergies Allergy/AdvReac Type Severity Reaction Status Date / Time morphine AdvReac Mild localized Verified 06/09/18 05:50 rash ta injection site one time Home Medications Home Medications Medication Instructions Recorded Confirmed Type Januvia 100 mg PO QPM 05/19/18 03/25/19 History aspirin [Aspir-81] 81 mg PO QAM 05/19/18 03/25/19 History metformin 1,000 mg PO BID 05/19/18 03/25/19 History metoprolol tartrate 25 mg PO BID 05/19/18 03/25/19 History nitroglycerin 0.4 mg SUBLINGUAL DIRECTED PRN 05/19/18 03/25/19 History omega 7-[id number]-fish oil [Fish Oil] 1 cap PO QAM 05/19/18 03/25/19 History clopidogrel 75 mg tablet 75 mg PO QAM tab 02/14/19 03/25/19 History pantoprazole 40 mg tablet,delayed 40 mg PO QAM #30 tab 02/14/19 03/25/19 History release ferrous sulfate 325 mg PO DAILY 03/25/19 03/25/19 History pioglitazone 30 mg PO QAM 03/25/19 03/25/19 History pravastatin 40 mg PO QPM 03/25/19 03/25/19 History Patient History Medical History CAD (coronary artery disease) CARMEL TO RCA x 1 in 2010. CARMEL to RCA, LAD on 03/08/19 at [facility] [place] by Dr Baptiste COPD (chronic obstructive pulmonary disease) no inhalers Diabetes mellitus, type II History of carotid artery stenosis S/P R CEA 2013 [facility]. Still follows closely with Dr. Cummings, has yearly imaging. History of kidney stones History of skin cancer S/P RESECTION Hyperlipidemia Spinal stenosis LOWER BACK Tobacco use Surgical History History of cardiac cath S/P CARMEL X 1 TO RCA (12/2010) CARMEL to RCA, LAD on 03/08/19 at [facility] [place] by Dr Baptiste History of colonoscopy History of endoscopy History of laparoscopic cholecystectomy History of repair of right rotator cuff History of right-sided carotid endarterectomy 2013 at [facility]. Status post Mohs surgery Family History Father History of lung cancer Mother History of skin cancer Social History Preferred Language: Kyr[place]z Communication Ability: Effective [employer]ill Operator Required: No Beliefs That Will Affect Care: None marital status: Current Living Situation: Spouse Other Information That Helps Us Care for You: No Feels Safe at Home: Yes Safety Concerns: Feels Safe At This Time Smoking Status: Current every day smoker Tobacco Type: cigarettes ; Cigarettes Per Day: 20 ; Tobacco Cessation Education Requested by Patient: No Hx Alcohol Use: No Hx Substance Use: No Review of Systems Review of Systems: All systems reviewed & are unremarkable except as noted in HPI & below Positive for melanotic stools, no chest pain no shortness of breath. Physical Exam Physical Exam: General: Alert. nontoxic. Skin: Warm, dry, Head: Atraumatic Ears, nose, mouth and throat: airway patent Cardiovascular: Normal peripheral perfusion Respiratory: no respiratory distress Gastrointestinal: Non distended, nontender with palpation Musculoskeletal: No deformity Results & Data Vital Signs (Past 12 Hours) Vital Signs Temp Pulse Pulse Resp BP Pulse Ox Pulse Ox 03/27/19 09:45 36.5 C 84 20 121/89 93 95 03/27/19 09:30 37 C 81 17 125/57 L 95 03/27/19 09:20 79 16 117/59 L 95 03/27/19 09:10 83 16 116/61 93 03/27/19 09:00 83 16 106/55 L 93 03/27/19 08:50 83 16 106/57 L 100 03/27/19 08:40 84 16 97/55 L 99 03/27/19 08:33 36.3 C L 85 16 84/42 L 97 03/27/19 04:22 36.9 C 80 19 134/65 97 03/27/19 00:09 36.9 C 75 20 118/55 L 96 Laboratory Results 03/27/19 03/27/19 03/27/19 Range/Units 10:58 10:08 09:35 Hgb 9.9 L (14.0-18.0) g/dL Hct 29.9 L (42-52) % POC Glucose 221 H 240 H (70-99) Crossmatch 03/27/19 03/26/19 03/26/19 Range/Units 08:34 20:17 16:15 Hgb (14.0-18.0) g/dL Hct (42-52) % POC Glucose 248 H 157 H 193 H (70-99) Crossmatch 03/25/19 Range/Units 13:56 Hgb (14.0-18.0) g/dL Hct (42-52) % POC Glucose (70-99) Crossmatch See Detail Coding Level of Care Code 98925 Inpt Consult Level 5 Diagnoses Chest pain R07.89 Chest pain type: other chest pain CAD (coronary artery disease) I25.10 Coronary Disease-Associated Artery/Lesion type: [place] artery [place] vs. transplanted heart: [place] heart Diabetes mellitus, type II E11.9 Tobacco use Z72.0 GI bleed K92.2 GI bleed type/associated pathology: unspecified gastrointestinal hemorrhage type (1) CAD (coronary artery disease) Coronary Disease-Associated Artery/Lesion type: [place] artery [place] vs. transplanted heart: [place] heart (2) GI bleed GI bleed type/associated pathology: unspecified gastrointestinal hemorrhage type Qualified Code(s): K92.2 - Gastrointestinal hemorrhage, unspecified (3) Chest pain Chest pain type: other chest pain Qualified Code(s): R07.89 - Other chest pain
[2019-03-27 17:31] LABS: Hemoglobin 9.9 g/dL (14.0-18.0)
[2019-03-27] MEDS: PRAVASTATIN SOD 40 MG TAB PO SCH (19:39)
[2019-03-27] MEDS: PANTOprazole 40 MG TAB PO SCH (19:39)
[2019-03-28 05:07] LABS: Hematocrit (blood only) 29.8 % (42-52); Hemoglobin 9.8 g/dL (14.0-18.0); Mean Corpuscular Hemoglobin 30.4 pg (25-34); Mean Corpuscular Hgb Conc 32.9 g/dL (32-36); Mean Corpuscular Volume 92.5 fL (80-100); Mean Platelet Volume 11.7 fL (7.4-10.4); Platelet Count 134 K/uL (130-400); RDW Coefficient of Variation 16.3 % (11.5-14.5); Red Blood Count 3.22 M/uL (4.7-6.1); White Blood Count 5.72 K/uL (4.8-10.8)
[2019-03-28 05:54] LABS: BUN Creatinine Ratio 6.8 (10-20); Calcium 8.2 mg/dl (8.5-10.1); Creatinine Clr Calc Pharmacy 108.7 ml/min; Est GFR (African American) 104.1; Est GFR (Non-African American) 89.8; Magnesium 1.6 mg/dl (1.8-2.4); Potassium 3.5 mmol/L (3.5-5.1)
[2019-03-28] MEDS ORDERED: POTASSIUM CHLORIDE 20 MEQ/15 ML UDC PO STA (07:12)
[2019-03-28] MEDS: MAGNESIUM SULFATE / D5W 1 GM/100 ML BAG IV SCH ×2 (07:29→08:47)
[2019-03-28] MEDS: ASPIRIN 81 MG ECTAB PO SCH (07:29)
[2019-03-28] MEDS: METOPROLOL TARTRATE 25 MG TAB PO SCH ×2 (07:30→20:39)
[2019-03-28] MEDS: PANTOprazole 40 MG TAB PO SCH ×2 (07:30→20:43)
[2019-03-28] MEDS: INSULIN GLARGINE SOLOSTAR 100 UNITS/ML 3 ML PEN SC SCH ×2 (07:30→20:37)
[2019-03-28] MEDS: CLOPIDOGREL BISULFATE 75 MG TAB PO SCH (07:30)
[2019-03-28] MEDS: INSULIN ASPART 100 UNITS/ML 3 ML PEN SC SCH ×4 (07:32→20:41)
--- NOTE | 2019-03-28 08:06 | Anesthesiology Progress Note ---
Date of Service March 28, 2019 Anesthesia Post Procedure Vital Signs Vital Signs: Temp Pulse Pulse Resp BP BP Pulse Ox 03/28/19 01:00 75 12 125/57 L 94 03/28/19 00:00 36.8 C 72 16 108/52 L 83 L 03/27/19 23:37 71 15 83/55 L 88 L 03/27/19 22:00 65 16 94/52 L 90 03/27/19 21:15 84 28 H 89 L 03/27/19 21:00 65 18 96/41 L 93 03/27/19 20:00 36.7 C 79 16 110/60 89 L 03/27/19 19:00 72 21 123/59 L 92 03/27/19 18:01 86 21 96 03/27/19 18:00 88 17 132/64 95 03/27/19 17:01 85 16 94 03/27/19 17:00 86 18 117/61 93 03/27/19 16:01 85 22 91 03/27/19 16:00 86 19 139/57 L 91 03/27/19 15:31 88 22 91 03/27/19 15:30 83 19 120/63 92 03/27/19 15:01 79 19 110/61 92 03/27/19 15:00 79 19 92 03/27/19 14:32 77 16 139/32 L 92 03/27/19 14:30 81 17 91 03/27/19 14:01 65 18 92 03/27/19 14:00 68 17 105/61 93 03/27/19 13:36 79 17 99/54 L 92 03/27/19 13:31 81 16 94 03/27/19 13:30 82 14 84/67 L 97 03/27/19 13:01 80 18 94 03/27/19 13:00 83 22 99/62 L 95 03/27/19 12:31 81 14 94 03/27/19 12:30 85 15 96/62 L 95 03/27/19 12:01 80 16 94 03/27/19 12:00 36.6 C 80 80 17 96/59 L 96/59 L 94 03/27/19 11:31 79 19 98/63 L 96 03/27/19 11:30 76 18 03/27/19 11:15 82 13 130/67 96 03/27/19 11:01 80 15 95 03/27/19 11:00 79 15 96/58 L 94 03/27/19 10:57 82 11 L 93/54 L 94 03/27/19 10:46 81 14 108/58 L 93 03/27/19 10:31 80 13 96 03/27/19 10:30 83 12 106/65 97 03/27/19 10:15 81 17 103/60 98 03/27/19 10:01 83 15 93 03/27/19 10:00 81 13 110/63 94 03/27/19 09:45 36.5 C 84 20 121/89 93 03/27/19 09:30 37 C 81 17 125/57 L 95 03/27/19 09:20 79 16 117/59 L 95 03/27/19 09:10 83 16 116/61 93 03/27/19 09:00 83 16 106/55 L 93 03/27/19 08:50 83 16 106/57 L 100 03/27/19 08:40 84 16 97/55 L 99 03/27/19 08:33 36.3 C L 85 16 84/42 L 97 Pulse Ox 03/28/19 01:00 03/28/19 00:00 03/27/19 23:37 03/27/19 22:00 03/27/19 21:15 03/27/19 21:00 03/27/19 20:00 03/27/19 19:00 03/27/19 18:01 03/27/19 18:00 03/27/19 17:01 03/27/19 17:00 03/27/19 16:01 03/27/19 16:00 92 03/27/19 15:31 03/27/19 15:30 03/27/19 15:01 03/27/19 15:00 03/27/19 14:32 03/27/19 14:30 03/27/19 14:01 03/27/19 14:00 03/27/19 13:36 03/27/19 13:31 03/27/19 13:30 03/27/19 13:01 03/27/19 13:00 03/27/19 12:31 03/27/19 12:30 03/27/19 12:01 03/27/19 12:00 03/27/19 11:31 03/27/19 11:30 03/27/19 11:15 03/27/19 11:01 03/27/19 11:00 03/27/19 10:57 03/27/19 10:46 03/27/19 10:31 03/27/19 10:30 03/27/19 10:15 03/27/19 10:01 03/27/19 10:00 03/27/19 09:45 95 03/27/19 09:30 03/27/19 09:20 03/27/19 09:10 03/27/19 09:00 03/27/19 08:50 03/27/19 08:40 03/27/19 08:33 Pain Intensity Head: Pain Intensity: 0 Chest: Pain Intensity: 0 Notes Mental Status: alert / awake / arousable and participated in evaluation Nausea / Vomiting: adequately controlled Pain: adequately controlled Airway Patency, RR, SpO2: stable & adequate BP & HR: stable & adequate Hydration State: stable & adequate
--- NOTE | 2019-03-28 09:17 | Critical Care Progress Note ---
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 Bunn was the resident-physician during care of patient. I separately evaluated patient for bueno portions of the history and the exam. I was present during the critical portion of medical decision making, and I discussed the case with the resident. I generally agree with the findings and plan except for any additions/exceptions noted. Patient is doing well today. Hemoglobin has been stable. He is tolerating his diet. He is not happy with his liquid diet currently. He is status post clipping of AVMs. He does have a significant cardiac history. He is on dual antiplatelet therapy. He denies any chest pain currently. He is stable to be transferred to the floor today with telemetry. Continue Protonix 40 mg twice daily. Appreciate gastroenterology consult. Subjective Patient sitting upright in bed comfortably in no acute distress. Reports doing well overnight, voiding on his own. Patient is tolerating his clear liquid diet although upset with the food requesting more substantial nutrition. Otherwise his hemoglobin is been stable, he denies any chest pain. All questions answered no acute concerns. Physical Exam Physical Exam: General: Alert. nontoxic. Skin: Warm, dry, Head: Atraumatic Ears, nose, mouth and throat: airway patent Cardiovascular: Normal peripheral perfusion Respiratory: no respiratory distress Gastrointestinal: Non distended, nontender with palpation Musculoskeletal: No deformity Results & Data Vital Signs (Past 12 Hours) Vital Signs Temp Pulse Resp BP Pulse Ox 03/28/19 08:00 36.9 C 82 16 149/71 H 94 03/28/19 07:30 91 H 24 91 03/28/19 07:00 80 17 89 L 03/28/19 01:00 75 12 125/57 L 94 03/28/19 00:00 36.8 C 72 16 108/52 L 83 L 03/27/19 23:37 71 15 83/55 L 88 L 03/27/19 22:00 65 16 94/52 L 90 Laboratory Results 03/28/19 03/28/19 03/28/19 Range/Units 07:09 04:42 04:42 WBC (4.8-10.8) K/uL RBC (4.7-6.1) M/uL Hgb (14.0-18.0) g/dL Hct (42-52) % MCV (80-100) fL MCH (25-34) pg MCHC (32-36) g/dL RDW Std Deviation (36.4-46.3) fL RDW Coeff of Harper (11.5-14.5) % Plt Count (130-400) K/uL MPV (7.4-10.4) fL Sodium 144 (136-145) mmol/L Potassium 3.5 (3.5-5.1) mmol/L Chloride 111 H (98-107) mmol/L Carbon Dioxide 27 (21-32) mmol/L Anion Gap 6.0 (3-11) BUN 6 L D (7-18) mg/dl Creatinine 0.83 (0.6-1.4) mg/dl Est Cr Clr Drug Dosing 108.7 ml/min Est GFR ( Amer) 104.1 Est GFR (Non-Af Amer) 89.8 BUN/Creatinine Ratio 6.8 L (10-20) Glucose 115 H (70-99) mg/dl POC Glucose 154 H (70-99) Estimat Average Glucose Pending Hemoglobin A1c Pending Calcium 8.2 L (8.5-10.1) mg/dl Magnesium 1.6 L (1.8-2.4) mg/dl Nasal Screen MRSA (PCR) (Negative) 03/28/19 03/27/19 03/27/19 Range/Units 04:42 19:22 17:22 WBC 5.72 (4.8-10.8) K/uL RBC 3.22 L (4.7-6.1) M/uL Hgb 9.8 L 9.9 L (14.0-18.0) g/dL Hct 29.8 L 30.0 L (42-52) % MCV 92.5 (80-100) fL MCH 30.4 (25-34) pg MCHC 32.9 (32-36) g/dL RDW Std Deviation 54.0 H (36.4-46.3) fL RDW Coeff of Harper 16.3 H (11.5-14.5) % Plt Count 134 (130-400) K/uL MPV 11.7 H (7.4-10.4) fL Sodium (136-145) mmol/L Potassium (3.5-5.1) mmol/L Chloride (98-107) mmol/L Carbon Dioxide (21-32) mmol/L Anion Gap (3-11) BUN (7-18) mg/dl Creatinine (0.6-1.4) mg/dl Est Cr Clr Drug Dosing ml/min Est GFR ( Amer) Est GFR (Non-Af Amer) BUN/Creatinine Ratio (10-20) Glucose (70-99) mg/dl POC Glucose 161 H (70-99) Estimat Average Glucose Hemoglobin A1c Calcium (8.5-10.1) mg/dl Magnesium (1.8-2.4) mg/dl Nasal Screen MRSA (PCR) (Negative) 03/27/19 03/27/19 03/27/19 Range/Units 15:44 10:58 10:08 WBC (4.8-10.8) K/uL RBC (4.7-6.1) M/uL Hgb 9.9 L (14.0-18.0) g/dL Hct 29.9 L (42-52) % MCV (80-100) fL MCH (25-34) pg MCHC (32-36) g/dL RDW Std Deviation (36.4-46.3) fL RDW Coeff of Harper (11.5-14.5) % Plt Count (130-400) K/uL MPV (7.4-10.4) fL Sodium (136-145) mmol/L Potassium (3.5-5.1) mmol/L Chloride (98-107) mmol/L Carbon Dioxide (21-32) mmol/L Anion Gap (3-11) BUN (7-18) mg/dl Creatinine (0.6-1.4) mg/dl Est Cr Clr Drug Dosing ml/min Est GFR ( Amer) Est GFR (Non-Af Amer) BUN/Creatinine Ratio (10-20) Glucose (70-99) mg/dl POC Glucose 267 H 221 H (70-99) Estimat Average Glucose Hemoglobin A1c Calcium (8.5-10.1) mg/dl Magnesium (1.8-2.4) mg/dl Nasal Screen MRSA (PCR) (Negative) 03/27/19 03/27/19 Range/Units 09:55 09:35 WBC (4.8-10.8) K/uL RBC (4.7-6.1) M/uL Hgb (14.0-18.0) g/dL Hct (42-52) % MCV (80-100) fL MCH (25-34) pg MCHC (32-36) g/dL RDW Std Deviation (36.4-46.3) fL RDW Coeff of Harper (11.5-14.5) % Plt Count (130-400) K/uL MPV (7.4-10.4) fL Sodium (136-145) mmol/L Potassium (3.5-5.1) mmol/L Chloride (98-107) mmol/L Carbon Dioxide (21-32) mmol/L Anion Gap (3-11) BUN (7-18) mg/dl Creatinine (0.6-1.4) mg/dl Est Cr Clr Drug Dosing ml/min Est GFR ( Amer) Est GFR (Non-Af Amer) BUN/Creatinine Ratio (10-20) Glucose (70-99) mg/dl POC Glucose 240 H (70-99) Estimat Average Glucose Hemoglobin A1c Calcium (8.5-10.1) mg/dl Magnesium (1.8-2.4) mg/dl Nasal Screen MRSA (PCR) Negative (Negative) Medications Administered Current Inpatient Medications Acetaminophen (Tylenol) 650 mg PO Q4H PRN PRN Reason: Pain or Fever Stop: 04/24/19 18:48 Aspirin (Ecotrin Ectab) 81 mg PO [facility] Stop: 04/25/19 08:59 Last Admin: 03/28/19 07:29 Dose: 81 mg Documented by: Clopidogrel Bisulfate (Plavix) 75 mg PO [facility] Stop: 04/25/19 08:59 Last Admin: 03/28/19 07:30 Dose: 75 mg Documented by: Dextrose (Dextrose 50%) 25 - 50 ml IV UD PRN; Protocol PRN Reason: Hypoglycemia Protocol Stop: 04/24/19 18:48 Glucagon (Glucagen) 1 mg SQ UD PRN; Protocol PRN Reason: Hypoglycemia Protocol Stop: 04/24/19 18:48 Glucose (Dex4 Glucose) 4 - 8 tabs PO UD PRN; Protocol PRN Reason: Hypoglycemia Protocol Stop: 04/24/19 18:48 Glucose (Glucose 40%) 15 - 30 gm PO UD PRN; Protocol PRN Reason: Hypoglycemia Protocol Stop: 04/24/19 18:48 Magnesium Sulfate/Dextrose (Magnesium Sulfate / D5w) 1 gm in 100 mls @ 100 mls/hr IV Q1H [facility] Stop: 03/28/19 09:29 Last Admin: 03/28/19 08:47 Dose: 100 mls/hr Documented by: Insulin Aspart (Novolog Flexpen) 0 units SC ACHS [facility] Stop: 04/24/19 20:59 Last Admin: 03/28/19 07:32 Dose: 5 units Documented by: Insulin Glargine (Lantus Solostar Pen) 0 units SC BID [facility]; Protocol Stop: 04/24/19 20:59 Last Admin: 03/28/19 07:30 Dose: 6 units Documented by: Metoprolol Tartrate (Lopressor) 25 mg PO BID [facility] Stop: 04/24/19 20:59 Last Admin: 03/28/19 07:30 Dose: 25 mg Documented by: Miscellaneous (Carbohydrates For Hypoglycemia) 15 - 30 gm PO UD PRN PRN Reason: Hypoglycemia Protocol Stop: 04/24/19 18:48 Nitroglycerin (Nitrostat) 0.4 mg SL UD PRN PRN Reason: Chest Pain Stop: 04/24/19 18:48 Pantoprazole Sodium (Protonix) 40 mg PO BID [facility] Stop: 04/26/19 20:59 Last Admin: 03/28/19 07:30 Dose: 40 mg Documented by: Pravastatin Sodium (Pravachol) 40 mg PO QPM [facility] Stop: 04/24/19 20:59 Last Admin: 03/27/19 19:39 Dose: 40 mg Documented by: Resident Activity Tracking Resident Involvement: Resident Care Provided Care Provided: Adult Hospital Medicine (1) CAD (coronary artery disease) Coronary Disease-Associated Artery/Lesion type: [place] artery [place] vs. transplanted heart: [place] heart (2) GI bleed GI bleed type/associated pathology: unspecified gastrointestinal hemorrhage type Qualified Code(s): K92.2 - Gastrointestinal hemorrhage, unspecified
[2019-03-28 10:07] LABS: Estimated Average Glucose 206 mg/dl; Hemoglobin A1C 8.8 % (4.5-5.6)
--- NOTE | 2019-03-28 10:13 | Gastroenterology Progress Note ---
Date of Service March 28, 2019 Assessment & Plan (1) Anemia: (2) GI bleed: Pt is a 68 y/o male w melena and anemia, on Plavix for s/p cardiac stents placement. 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 Overnight doing well, VS stable, no further signs of melena, no n/v, abd pain, H/H stable. - Continue Protonix 40mg PO BID - Advanced diet to soft, minced - Monitor H/H and transfuse prn - Will continue to monitor for now Supervising Physician Co-Signing Physician Notes I have performed a history and physical examination of this patient and reviewed the electronic medical record. Specifically, on physical examination the abdomen is soft and non tender. There is no sign of further bleeding. I have discussed the case with JULIANA Richardson. The above note reflects my findings, conclusions, and recommendations. Ge Jefferson MD Subjective Pt w/o acute events overnight. VS stable. He denies any more BMs since EGD yesterday. H/H stable. Denies also of any abd pain, n/v. He expressed desire to go home by tomorrow . Review of Systems Review of Systems: All systems reviewed & are unremarkable except as noted in HPI & below Physical Exam Constitutional: WD/WN, vitals as above well groomed, cooperative and comfortable Eyes: PERRL, conjunctivae normal, anicteric sclerae ENMT: external ear and nose normal, oropharynx normal Respiratory: normal respiratory effort, lungs clear to auscultation Cardiovascular: RRR, no murmur, no edema Gastrointestinal (Abdomen): normal bowel sounds, soft, nontender, no hepatosplenomegaly Skin: no rashes, warm and dry no jaundice Psychiatric: A+Ox3, euthymic affect Lymphatic: no lymphedema Results & Data Vital Signs (Past 12 Hours) Vital Signs Temp Pulse Resp BP Pulse Ox 03/28/19 08:00 36.9 C 82 16 149/71 H 94 03/28/19 07:30 91 H 24 91 03/28/19 07:00 80 17 89 L 03/28/19 01:00 75 12 125/57 L 94 03/28/19 00:00 36.8 C 72 16 108/52 L 83 L 03/27/19 23:37 71 15 83/55 L 88 L (1) GI bleed GI bleed type/associated pathology: unspecified gastrointestinal hemorrhage type Qualified Code(s): K92.2 - Gastrointestinal hemorrhage, unspecified (2) Anemia Anemia type: unspecified type Qualified Code(s): D64.9 - Anemia, unspecified
--- NOTE | 2019-03-28 10:25 | Hospitalist Progress Note ---
Date of Service March 28, 2019 Assessment & Plan (1) GI bleed: Pt is 68 y/o M with PMH CAD s/p CARMEL to RCA in 2010, s/p CARMEL to RCA, LAD [place] 03/18/[address] [place] [facility] [place], DM II, h/o GI bleed presented to ER with complaint of melena x 5 days. Patient reports daily BM formed black color s tool. Reported some SOB with walking. Denies dizziness, syncope, CP. Outpatient records reviewed with Hgb: 15 on 03/19/19, Hgb:13 on 03/23/19, Hgb:12.5 on 03/24/19 On admission, In ER pt afebrile, P: 80, R: 18, BP: 129/68. No leukocytosis. H/H: 11.2/33, BUN: 25, Cr: 1.0, GFR: 73 CT Abd/pelvis: No acute process in the abdomen or pelvis. No significant change from the prior study. Hx of small bowel AVM's with presentation of obscure overt GIB in October s/p push enteroscopy and ablation -In ER Hemoccult positive black color stool reported -In ER Protonix bolus and drip started -Now status post upper endoscopy earlier today,03/27,with Dr Sanchez. There was AVM briskly oozing in distal duodenum, resolved with placement of 3 clips. There was also nonbleeding AVM in the proximal jejunum 2 clips were placed on the site. -advance diet (minced and moist) -switch to PO PPI BID -Type and cross PRBCs and hold, transfuse as needed, goal Hgb >8 -current Hgb stable 9.9 (PM Hgb 10.6) -Cont. to monitor H&H twice a day -Will continue aspirin and Plavix as pt with recent CARMEL placement 1 week ago -Monitor CBC, BMP Hypokalemia, hypomagnesemia - replete and monitor (2) CAD (coronary artery disease): CAD s/p CARMEL to RCA in 2010, s/p CARMEL to RCA, LAD on 03/18/[address] [place] [facility] [place] Reported post stenting CP which has since resolved. Denies further CP. Troponin negative, no acute EKG changes -Continue Plavix, aspirin, metoprolol, statin -Cardiology consulted (3) Diabetes mellitus, type II: A1c: 8.6 on 03/19/19 -Hold metformin, sitagliptin, pioglitazone -Basal bolus insulin per protocol (4) Tobacco use: -Pt counselled on smoking cessation -Denies nicotine patch DVT Prophylaxis -SCDs with melena Full Code as per discussion with pt Follows with Chapito Cano PA-C in [place] for routine care Subjective No acute events overnight. Patient is comfortably sitting in a chair, in no acute distress. Denies any fevers, chills, chest pain, shortness of breath, abdominal pain. Denies having any BMs Hgb stable this AM. Telemetry reviewed. Patient is currently in ICU, will downgrade. Update: PM Hgb stable, 10.6 Review of Systems Review of Systems: All systems reviewed & are unremarkable except as noted in HPI & below Constitutional: no fever and no chills Respiratory: no cough and no dyspnea Cardiovascular: no chest pain and no palpitations Gastrointestinal: no abdominal pain, no nausea and no vomiting Physical Exam Physical Exam: General: Elderly obese male, sitting in a chair, in no acute distress Head: normocephalic, atraumatic Eyes: PERRL, EOMI, pale conjunctiva, anicteric sclerae ENT: normal inspection external ears, nose, mucous membranes moist Neck: supple, trachea midline, non-tender Lungs: clear to auscultation b/l but poor mvmt/diminished breath sounds, no respiratory distress, no wheezing/rhonchi/rales CV: RRR, no murmur, no pretibial edema Abd: normal BS, soft,obese, non-tender to palpation, no guarding Ext: no cyanosis, no calf tenderness, moves all 4 extremities spontaneously Neuro/Psych: A&O x 3,normal affect, speech fluent, no facial asymmetry, moves all 4 extremities spontaneously and without difficulty Skin: warm, dry, pale Results & Data Vital Signs (Past 12 Hours) Vital Signs Temp Pulse Resp BP Pulse Ox 03/28/19 08:00 36.9 C 82 16 149/71 H 94 03/28/19 07:30 91 H 24 91 03/28/19 07:00 80 17 89 L 03/28/19 01:00 75 12 125/57 L 94 03/28/19 00:00 36.8 C 72 16 108/52 L 83 L 03/27/19 23:37 71 15 83/55 L 88 L Laboratory Results 03/28/19 03/28/19 03/28/19 Range/Units 07:09 04:42 04:42 WBC (4.8-10.8) K/uL RBC (4.7-6.1) M/uL Hgb (14.0-18.0) g/dL Hct (42-52) % MCV (80-100) fL MCH (25-34) pg MCHC (32-36) g/dL RDW Std Deviation (36.4-46.3) fL RDW Coeff of Harper (11.5-14.5) % Plt Count (130-400) K/uL MPV (7.4-10.4) fL Sodium 144 (136-145) mmol/L Potassium 3.5 (3.5-5.1) mmol/L Chloride 111 H (98-107) mmol/L Carbon Dioxide 27 (21-32) mmol/L Anion Gap 6.0 (3-11) BUN 6 L D (7-18) mg/dl Creatinine 0.83 (0.6-1.4) mg/dl Est Cr Clr Drug Dosing 108.7 ml/min Est GFR ( Amer) 104.1 Est GFR (Non-Af Amer) 89.8 BUN/Creatinine Ratio 6.8 L (10-20) Glucose 115 H (70-99) mg/dl POC Glucose 154 H (70-99) Estimat Average Glucose 206 mg/dl Hemoglobin A1c 8.8 H (4.5-5.6) % Calcium 8.2 L (8.5-10.1) mg/dl Magnesium 1.6 L (1.8-2.4) mg/dl Nasal Screen MRSA (PCR) (Negative) 03/28/19 03/27/19 03/27/19 Range/Units 04:42 19:22 17:22 WBC 5.72 (4.8-10.8) K/uL RBC 3.22 L (4.7-6.1) M/uL Hgb 9.8 L 9.9 L (14.0-18.0) g/dL Hct 29.8 L 30.0 L (42-52) % MCV 92.5 (80-100) fL MCH 30.4 (25-34) pg MCHC 32.9 (32-36) g/dL RDW Std Deviation 54.0 H (36.4-46.3) fL RDW Coeff of Harpre 16.3 H (11.5-14.5) % Plt Count 134 (130-400) K/uL MPV 11.7 H (7.4-10.4) fL Sodium (136-145) mmol/L Potassium (3.5-5.1) mmol/L Chloride (98-107) mmol/L Carbon Dioxide (21-32) mmol/L Anion Gap (3-11) BUN (7-18) mg/dl Creatinine (0.6-1.4) mg/dl Est Cr Clr Drug Dosing ml/min Est GFR ( Amer) Est GFR (Non-Af Amer) BUN/Creatinine Ratio (10-20) Glucose (70-99) mg/dl POC Glucose 161 H (70-99) Estimat Average Glucose mg/dl Hemoglobin A1c (4.5-5.6) % Calcium (8.5-10.1) mg/dl Magnesium (1.8-2.4) mg/dl Nasal Screen MRSA (PCR) (Negative) 03/27/19 03/27/19 03/27/19 Range/Units 15:44 10:58 09:55 WBC (4.8-10.8) K/uL RBC (4.7-6.1) M/uL Hgb (14.0-18.0) g/dL Hct (42-52) % MCV (80-100) fL MCH (25-34) pg MCHC (32-36) g/dL RDW Std Deviation (36.4-46.3) fL RDW Coeff of Harper (11.5-14.5) % Plt Count (130-400) K/uL MPV (7.4-10.4) fL Sodium (136-145) mmol/L Potassium (3.5-5.1) mmol/L Chloride (98-107) mmol/L Carbon Dioxide (21-32) mmol/L Anion Gap (3-11) BUN (7-18) mg/dl Creatinine (0.6-1.4) mg/dl Est Cr Clr Drug Dosing ml/min Est GFR ( Amer) Est GFR (Non-Af Amer) BUN/Creatinine Ratio (10-20) Glucose (70-99) mg/dl POC Glucose 267 H 221 H (70-99) Estimat Average Glucose mg/dl Hemoglobin A1c (4.5-5.6) % Calcium (8.5-10.1) mg/dl Magnesium (1.8-2.4) mg/dl Nasal Screen MRSA (PCR) Negative (Negative) Medications Administered Current Inpatient Medications Acetaminophen (Tylenol) 650 mg PO Q4H PRN PRN Reason: Pain or Fever Stop: 04/24/19 18:48 Aspirin (Ecotrin Ectab) 81 mg PO [facility] Stop: 04/25/19 08:59 Last Admin: 03/28/19 07:29 Dose: 81 mg Documented by: Clopidogrel Bisulfate (Plavix) 75 mg PO [facility] Stop: 04/25/19 08:59 Last Admin: 03/28/19 07:30 Dose: 75 mg Documented by: Dextrose (Dextrose 50%) 25 - 50 ml IV UD PRN; Protocol PRN Reason: Hypoglycemia Protocol Stop: 04/24/19 18:48 Glucagon (Glucagen) 1 mg SQ UD PRN; Protocol PRN Reason: Hypoglycemia Protocol Stop: 04/24/19 18:48 Glucose (Dex4 Glucose) 4 - 8 tabs PO UD PRN; Protocol PRN Reason: Hypoglycemia Protocol Stop: 04/24/19 18:48 Glucose (Glucose 40%) 15 - 30 gm PO UD PRN; Protocol PRN Reason: Hypoglycemia Protocol Stop: 04/24/19 18:48 Insulin Aspart (Novolog Flexpen) 0 units SC ACHS [facility] Stop: 04/24/19 20:59 Last Admin: 03/28/19 07:32 Dose: 5 units Documented by: Insulin Glargine (Lantus Solostar Pen) 0 units SC BID [facility]; Protocol Stop: 04/24/19 20:59 Last Admin: 03/28/19 07:30 Dose: 6 units Documented by: Metoprolol Tartrate (Lopressor) 25 mg PO BID [facility] Stop: 04/24/19 20:59 Last Admin: 03/28/19 07:30 Dose: 25 mg Documented by: Miscellaneous (Carbohydrates For Hypoglycemia) 15 - 30 gm PO UD PRN PRN Reason: Hypoglycemia Protocol Stop: 04/24/19 18:48 Nitroglycerin (Nitrostat) 0.4 mg SL UD PRN PRN Reason: Chest Pain Stop: 04/24/19 18:48 Pantoprazole Sodium (Protonix) 40 mg PO BID [facility] Stop: 04/26/19 20:59 Last Admin: 03/28/19 07:30 Dose: 40 mg Documented by: Pravastatin Sodium (Pravachol) 40 mg PO QPM [facility] Stop: 04/24/19 20:59 Last Admin: 03/27/19 19:39 Dose: 40 mg Documented by: (1) GI bleed GI bleed type/associated pathology: unspecified gastrointestinal hemorrhage type Qualified Code(s): K92.2 - Gastrointestinal hemorrhage, unspecified (2) CAD (coronary artery disease) Coronary Disease-Associated Artery/Lesion type: [place] artery [place] vs. transplanted heart: [place] heart
--- NOTE | 2019-03-28 10:39 | Billing Data ---
Coding Level of Care Code 73739 Subseq Hosp Care Lvl 3
--- NOTE | 2019-03-28 12:48 | Cardiology Progress Note ---
Date of Service March 28, 2019 Assessment & Plan (1) CAD (coronary artery disease): (2) Sinus pause: (3) GI bleed: (4) Anemia: Continue dual antiplatelet therapy in addition to other cardiovascular medications as previously ordered. Monitor daily hemoglobin. Repeat ECG with any recurrent chest discomfort. Patient may be transferred to the progressive care unit. Discussed evidence of asymptomatic sinus pause as noted above. Possibly related to increased vagal tone in the setting of abdominal discomfort and nausea on admission as well as potential obstructive sleep apnea. Recommend outpatient sleep apnea evaluation. Continue to monitor telemetry. No medication changes. Subjective Patient seen and examined at the bedside. No recurrent melena or dark stools overnight. Hemoglobin remained stable. Denies chest pain or unusual shortness of breath. Review of telemetry demonstrates an isolated, 4.2-second pause recorded during presumed hours of sleep 03/26/2019. Patient denies any lightheadedness, dizziness, syncope, or near syncope. Reports significant nausea without vomiting on admission. Denies history of sleep apnea. Review of Systems Review of Systems: All systems reviewed & are unremarkable except as noted in HPI & below Physical Exam Physical Exam: General: NAD, AAO x3, well nourished. pale. HEENT: Normocephalic. Atraumatic. Conjunctiva pink, no scleral icterus. Neck: No carotid bruits, the carotid upstrokes are brisk. No JVD. No HJR Heart: Regular normal S-1 and S-2 no S-3 or S-4 gallop. No murmurs or rub appreciated. PMI is not displaced. No RV heave. Lungs: Clear bilateral without rales , rhonchi, or wheeze. Abdomen: Normal bowel sounds. Soft. Nontender. No masses or organomegaly. No abdominal bruits. Extremities: Right anterior wrist ecchymosis without hematoma. No clubbing, cyanosis, or edema. Pulses: radial=2/4, Dorsalis pedis =2/4, posterior tibial=2/4. Neuro: Cranial nerves grossly intact. No focal motor deficit. Results & Data Vital Signs (Past 12 Hours) Vital Signs Temp Pulse Resp BP Pulse Ox 03/28/19 08:00 36.9 C 82 16 149/71 H 94 03/28/19 07:30 91 H 24 91 03/28/19 07:00 80 17 89 L 03/28/19 01:00 75 12 125/57 L 94 (1) CAD (coronary artery disease) Coronary Disease-Associated Artery/Lesion type: [place] artery [place] vs. transplanted heart: [place] heart (2) GI bleed GI bleed type/associated pathology: unspecified gastrointestinal hemorrhage type Qualified Code(s): K92.2 - Gastrointestinal hemorrhage, unspecified (3) Anemia Anemia type: unspecified type Qualified Code(s): D64.9 - Anemia, unspecified
[2019-03-28 16:33] LABS: Hemoglobin 10.6 g/dL (14.0-18.0)
[2019-03-28] MEDS ORDERED: POLYETHYLENE (MIRALAX) 17 GM PACK PO PRN (19:14)
[2019-03-28] MEDS: PRAVASTATIN SOD 40 MG TAB PO SCH (20:43)
[2019-03-29 06:03] LABS: Hemoglobin 9.7 g/dL (14.0-18.0)
[2019-03-29 06:30] LABS: BUN Creatinine Ratio 6.3 (10-20); Calcium 8.3 mg/dl (8.5-10.1); Est GFR (African American) 96.7; Est GFR (Non-African American) 83.5; Magnesium 1.7 mg/dl (1.8-2.4); Potassium 3.9 mmol/L (3.5-5.1)
--- NOTE | 2019-03-29 06:57 | Hospitalist Progress Note ---
Date of Service March 29, 2019 Results & Data Vital Signs (Past 12 Hours) Vital Signs Temp Pulse Pulse Resp BP BP Pulse Ox 03/29/19 04:58 36.8 C 71 18 98/62 L 92 03/29/19 00:00 79 03/28/19 23:53 36.6 C 79 19 98/65 L 95 Laboratory Results 03/29/19 03/29/19 03/28/19 Range/Units 05:52 05:52 20:26 Hgb 9.7 L (14.0-18.0) g/dL Hct 30.0 L (42-52) % Sodium 142 (136-145) mmol/L Potassium 3.9 (3.5-5.1) mmol/L Chloride 111 H (98-107) mmol/L Carbon Dioxide 28 (21-32) mmol/L Anion Gap 3.0 (3-11) BUN 6 L (7-18) mg/dl Creatinine 0.93 (0.6-1.4) mg/dl Est Cr Clr Drug Dosing 97.0 ml/min Est GFR ( Amer) 96.7 Est GFR (Non-Af Amer) 83.5 BUN/Creatinine Ratio 6.3 L (10-20) Glucose 201 H (70-99) mg/dl POC Glucose 187 H (70-99) Estimat Average Glucose mg/dl Hemoglobin A1c (4.5-5.6) % Calcium 8.3 L (8.5-10.1) mg/dl Magnesium 1.7 L (1.8-2.4) mg/dl Crossmatch 03/28/19 03/28/19 03/28/19 Range/Units 16:36 16:22 11:43 Hgb 10.6 L (14.0-18.0) g/dL Hct 32.0 L (42-52) % Sodium (136-145) mmol/L Potassium (3.5-5.1) mmol/L Chloride (98-107) mmol/L Carbon Dioxide (21-32) mmol/L Anion Gap (3-11) BUN (7-18) mg/dl Creatinine (0.6-1.4) mg/dl Est Cr Clr Drug Dosing ml/min Est GFR ( Amer) Est GFR (Non-Af Amer) BUN/Creatinine Ratio (10-20) Glucose (70-99) mg/dl POC Glucose 156 H 170 H (70-99) Estimat Average Glucose mg/dl Hemoglobin A1c (4.5-5.6) % Calcium (8.5-10.1) mg/dl Magnesium (1.8-2.4) mg/dl Crossmatch 03/28/19 03/28/19 03/25/19 Range/Units 07:09 04:42 13:56 Hgb (14.0-18.0) g/dL Hct (42-52) % Sodium (136-145) mmol/L Potassium (3.5-5.1) mmol/L Chloride (98-107) mmol/L Carbon Dioxide (21-32) mmol/L Anion Gap (3-11) BUN (7-18) mg/dl Creatinine (0.6-1.4) mg/dl Est Cr Clr Drug Dosing ml/min Est GFR ( Amer) Est GFR (Non-Af Amer) BUN/Creatinine Ratio (10-20) Glucose (70-99) mg/dl POC Glucose 154 H (70-99) Estimat Average Glucose 206 mg/dl Hemoglobin A1c 8.8 H (4.5-5.6) % Calcium (8.5-10.1) mg/dl Magnesium (1.8-2.4) mg/dl Crossmatch See Detail Medications Administered Current Inpatient Medications Acetaminophen (Tylenol) 650 mg PO Q4H PRN PRN Reason: Pain or Fever Stop: 04/24/19 18:48 Aspirin (Ecotrin Ectab) 81 mg PO [facility] Stop: 04/25/19 08:59 Last Admin: 03/28/19 07:29 Dose: 81 mg Documented by: Clopidogrel Bisulfate (Plavix) 75 mg PO [facility] Stop: 04/25/19 08:59 Last Admin: 03/28/19 07:30 Dose: 75 mg Documented by: Dextrose (Dextrose 50%) 25 - 50 ml IV UD PRN; Protocol PRN Reason: Hypoglycemia Protocol Stop: 04/24/19 18:48 Glucagon (Glucagen) 1 mg SQ UD PRN; Protocol PRN Reason: Hypoglycemia Protocol Stop: 04/24/19 18:48 Glucose (Dex4 Glucose) 4 - 8 tabs PO UD PRN; Protocol PRN Reason: Hypoglycemia Protocol Stop: 04/24/19 18:48 Glucose (Glucose 40%) 15 - 30 gm PO UD PRN; Protocol PRN Reason: Hypoglycemia Protocol Stop: 04/24/19 18:48 Magnesium Sulfate/Dextrose (Magnesium Sulfate / D5w) 1 gm in 100 mls @ 100 mls/hr IV Q1H [facility] Stop: 03/29/19 08:59 Insulin Aspart (Novolog Flexpen) 0 units SC [facility] Stop: 04/24/19 20:59 Last Admin: 03/28/19 20:41 Dose: 4 units Documented by: Insulin Glargine (Lantus Solostar Pen) 0 units SC BID [facility]; Protocol Stop: 04/24/19 20:59 Last Admin: 03/28/19 20:37 Dose: 12 units Documented by: Metoprolol Tartrate (Lopressor) 25 mg PO BID [facility] Stop: 04/24/19 20:59 Last Admin: 03/28/19 20:39 Dose: 25 mg Documented by: Miscellaneous (Carbohydrates For Hypoglycemia) 15 - 30 gm PO UD PRN PRN Reason: Hypoglycemia Protocol Stop: 04/24/19 18:48 Nitroglycerin (Nitrostat) 0.4 mg SL UD PRN PRN Reason: Chest Pain Stop: 04/24/19 18:48 Pantoprazole Sodium (Protonix) 40 mg PO BID [facility] Stop: 04/26/19 20:59 Last Admin: 03/28/19 20:43 Dose: 40 mg Documented by: Polyethylene Glycol (Miralax Powder Packet) 17 gm PO DAILY PRN PRN Reason: Constipation Stop: 04/27/19 19:13 Pravastatin Sodium (Pravachol) 40 mg PO QPM [facility] Stop: 04/24/19 20:59 Last Admin: 03/28/19 20:43 Dose: 40 mg Documented by:
[2019-03-29] MEDS: MAGNESIUM SULFATE / D5W 1 GM/100 ML BAG IV SCH ×2 (08:23→09:38)
[2019-03-29] MEDS: INSULIN GLARGINE SOLOSTAR 100 UNITS/ML 3 ML PEN SC SCH (08:23)
[2019-03-29] MEDS: INSULIN ASPART 100 UNITS/ML 3 ML PEN SC SCH (08:24)
[2019-03-29] MEDS: PANTOprazole 40 MG TAB PO SCH (08:25)
[2019-03-29] MEDS: METOPROLOL TARTRATE 25 MG TAB PO SCH (08:25)
[2019-03-29] MEDS: CLOPIDOGREL BISULFATE 75 MG TAB PO SCH (08:26)
[2019-03-29] MEDS: ASPIRIN 81 MG ECTAB PO SCH (08:26)
--- NOTE | 2019-03-29 10:43 | Gastroenterology Progress Note ---
Date of Service March 29, 2019 Assessment & Plan (1) Anemia: (2) GI bleed: Pt is a 68 y/o male w melena and anemia, on Plavix for s/p cardiac stents placement. 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 He did have an episode of soft black stool yesterday. H/H & VS stable, clinically doing well otherwise - Continue Protonix 40mg PO BID - Soft, minced diet - Monitor H/H and transfuse prn - No contraindication for DC from GI standpoint Review of Systems Review of Systems: All systems reviewed & are unremarkable except as noted in HPI & below Physical Exam Constitutional: WD/WN, vitals as above well groomed, cooperative and comfortable Eyes: PERRL, conjunctivae normal, anicteric sclerae ENMT: external ear and nose normal, oropharynx normal Respiratory: normal respiratory effort, lungs clear to auscultation Cardiovascular: RRR, no murmur, no edema Gastrointestinal (Abdomen): normal bowel sounds, soft, nontender, no hepatosp lenomegaly Skin: no rashes, warm and dry Psychiatric: A+Ox3, euthymic affect Lymphatic: no lymphedema Results & Data Vital Signs (Past 12 Hours) Vital Signs Temp Pulse Pulse Resp BP BP Pulse Ox 03/29/19 08:28 36.7 C 71 20 115/70 92 03/29/19 08:00 77 03/29/19 04:58 36.8 C 71 18 98/62 L 92 03/29/19 00:00 79 03/28/19 23:53 36.6 C 79 19 98/65 L 95 (1) GI bleed GI bleed type/associated pathology: unspecified gastrointestinal hemorrhage type Qualified Code(s): K92.2 - Gastrointestinal hemorrhage, unspecified (2) Anemia Anemia type: unspecified type Qualified Code(s): D64.9 - Anemia, unspecified
--- NOTE | 2019-03-29 11:15 | Discharge Summary ---
Date of Service March 29, 2019 Admission HPI Per Admitting Provider Pt is 68 y/o M with PMH CAD s/p CARMEL to RCA in 2010, s/p CARMEL to RCA, LAD on 03/18/[address] Baptiste at [facility], CHF, DM II, h/o GI bleed presented to ER with complaint of melena x 5 days. Patient reports daily BM formed black color stool. Denies abdominal pain, nausea, vomiting, diarrhea. Patient on Plavix and aspirin, denies NSAID or ETOH use. Patient reports was on iron in past however stopped taking it but started resuming iron once daily 1 week ago. Patient reports today with some shortness of breath with walking into ER. Denies dizziness, syncope. Patient reports chest pain after stent placement on 019 however that has resolved. Patient was seen at [facility] ER on 03/21/2019 for melena at that time Hgb:14 and it was recommended patient be admitted however patient left AMA. He was set up with GI and was to have endoscopy 03/23/2019 however procedure was canceled by anesthesiologist. With patient's continued melena it was recommended to patient to go to [facility] ER and patient reports he sat in waiting room for numerous hours and ended up leaving prior to being seen. 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 Admission Exam Per Admitting Provider General: no acute distress, obese Head: normocephalic, atraumatic Eyes: PERRL, EOM's intact, pale conjunctiva, anicteric ENT: normal inspection external ears, nose, mucous membranes moist Neck: supple, trachea midline, non-tender Lungs: clear, no respiratory distress, no wheezing/rhonchi/rales CV: RRR, no murmur, no pretibial edema Abd: normal BS, soft, protuberant, non-tender to palpation Ext: no cyanosis, no calf tenderness Neuro: A&O x 3, no focal deficits noted, normal affect Skin: warm, dry, pale Principal Diagnosis Acute blood loss anemia, secondary to GI bleed/AVMs in the small bowel Discharge Exam General: Elderly obese male, sitting in a chair, in no acute distress Head: normocephalic, atraumatic Eyes: PERRL, EOMI, pale conjunctiva, anicteric sclerae ENT: normal inspection external ears, nose, mucous membranes moist Neck: supple, trachea midline, non-tender Lungs: clear to auscultation b/l but poor mvmt/diminished breath sounds, no respiratory distress, no wheezing/rhonchi/rales CV: RRR, no murmur, no pretibial edema Abd: normal BS, soft,obese, non-tender to palpation, no guarding Ext: no cyanosis, no calf tenderness, moves all 4 extremities spontaneously Neuro/Psych: A&O x 3,normal affect, speech fluent, no facial asymmetry, moves all 4 extremities spontaneously and without difficulty Skin: warm, dry, pale Discharge Data Allergies Allergy/AdvReac Type Severity Reaction Status Date / Time morphine AdvReac Mild localized Verified 06/09/18 05:50 rash ta injection site one time Consultations 03/25/19 16:08 ED Decision to Admit Stat 03/25/19 18:49 Consult Cardiology Routine Consult Case Management - Discharge Planning Routine Consult Gastroenterology Routine 03/27/19 11:14 Consult Commonwealth Attorney Routine Procedures Performed Operation Date: 03/26/19 14:00 <No data on this case meets the specified criteria> Operation Date: 03/27/19 07:30 Actual Procedures p Esophagogastroduodenoscopy With Application of Gastric clips (Not Applicable) - Irphan E Gaslightwala Ordered Studies 03/25/19 14:02 CT abd pelvis IV con only Stat FINDINGS: Minimal dependent basilar atelectasis. Prior cholecystectomy. Liver spleen and pancreas are unremarkable. Pancreas is patent fatty replaced. Stable upper pole left renal cyst. 2 mm nonobstructing cortical calcification lower aspect right kidney. No evidence for hydronephrosis. Bladder is midline. No significant free fluid within the soft tissue pelvis. Bowel pattern is nonobstructive. IMPRESSION: No acute process in the abdomen or pelvis. No significant change from the prior study. 03/26/2019 Nuclear Medicine Scan FINDINGS: There is a subtle focus of radiotracer best seen on images 55 through 84 which extends from the left upper quadrant to the mid abdomen. This likely resides within a small bowel loop given the central location and favors a mid jejunal loop. Therefore, this suggests an active GI bleed. IMPRESSION: Above findings consistent with an active GI bleed likely located within the small bowel (mid jejunum). 03/27/2019 EGD Findings: The examined esophagus was normal. The entire examined stomach was normal. There was bilious fluid in the stomach. There was bilious fluid in the duodenal bulb and second portion of the duodenum There was an AVM in the distal duoudenum that was briskly oozing. This resolved with placement of three clips. There was a non bleeding AVM in the proximal jejunum. Two clips were placed on this site. Impression: Duodenal AVM, briskly oozing. Resolved with clip placement. Recommendation: - Discharge patient to ICU. - HGB twice daily. - Clears only today. - Oral PPI twice daily. Hospital Course (1) GI bleed: Pt is 68 y/o M with PMH CAD s/p CARMEL to RCA in 2010, s/p CARMEL to RCA, LAD on 03/18/[address] Baptiste at [facility], CHF, DM II, h/o GI bleed presented to ER with complaint of melena x 5 days. Patient reports daily BM formed black color stool. Reported some SOB with walking. Denies dizziness, syncope, CP. Outpatient records reviewed with Hgb: 15 on 03/19/19, Hgb:13 on 03/23/19, Hgb:12.5 on 03/24/19 On admission, In ER pt afebrile, P: 80, R: 18, BP: 129/68. No leukocytosis. H/H: 11.2/33, BUN: 25, Cr: 1.0, GFR: 73 CT Abd/pelvis: No acute process in the abdomen or pelvis. No significant change from the prior study. Hx of small bowel AVM's with presentation of obscure overt GIB in October s/p push enteroscopy and ablation -In ER Hemoccult positive black color stool reported -In ER Protonix bolus and drip started -Type and cross PRBCs and hold, transfuse as needed, goal Hgb >8 -Now status post upper endoscopy (03/27) with Dr. Sanchez. There was AVM briskly oozing in distal duodenum, resolved with placement of 3 clips. There was also nonbleeding AVM in the proximal jejunum 2 clips were placed on the site. -advanced diet (minced and moist) -switch to PO PPI BID -current Hgb stable between 9 and 10 -continue aspirin and Plavix as pt with recent CARMEL placement 1 week ago -plan to re-check CBC as outpt Hypokalemia, hypomagnesemia - replete and monitor - started on PO magnesium supplement on discharge (2) CAD (coronary artery disease): CAD s/p CARMEL to RCA in 2010, s/p CARMEL to RCA, LAD on 03/18/[address] Baptiste at [facility] Reported post stenting CP which has since resolved. Denies further CP. Troponin negative, no acute EKG changes -Continue Plavix, aspirin, metoprolol, statin -Cardiology consulted (3) Diabetes mellitus, type II: A1c: 8.6% on 03/19/19 -Hold metformin, sitagliptin, pioglitazone -Basal bolus insulin per protocol (4) Tobacco use: -Pt counselled on smoking cessation -Declines nicotine patch Follows with Chapito Cano PA-C in [place] for routine care Total Time Total Time Spent Total Time Spent (In Minutes): 40 Total Time Includes: Examination of the Patient, Discharge Planning, Medication Reconciliation and Communication With Other Providers Discharge Plan Discharge Items Patient Disposition: Home - Self-Care Reason For Visit: GI BLEED Discharge Diagnosis: Acute blood loss anemia, secondary to GI bleed/AVMs in the small bowel Activity: Resume your previous activity Activity Comment: as tolerated/ pace yourself, ask for help as needed Non-emergency contact: Primary Care Provider Call non-emergency contact if: you have any medication questions and your symptoms worsen Follow-up/Referrals: Chapito Cano PA-C [Primary Care Provider] - Diet: Carb Consistent or DM2 Diet Comment: Soft and Minced diet Addtl Attending Provider Instructions: You will need to follow-up with your primary care provider this week, and obtain blood work (CBC to check your anemia). Take pantoprazole twice a day. Restart taking your iron supplement next week/after discussing with primary care provider. Make sure to keep your stools soft, you can use stool softener, do not strain, continue eating soft diet for now. Pending Studies at Discharge: No Stand-Alone Forms: My [facility], Smoking Cessation Medications and DC Order Prescriptions: New pantoprazole 40 mg Tablet,Delayed Release (Dr/Ec) 40 mg PO BID 30 Days Qty: 60 RF: 0 polyethylene glycol 3350 [Miralax] 17 gram Powder In Packet 17 g PO DAILY PRN (Reason: constipation) 10 Days Qty: 10 RF: 0 magnesium oxide 400 mg magnesium capsule 400 mg PO DAILY 14 Days Qty: 14 RF: 0 Continued clopidogrel 75 mg tablet 75 mg PO QAM RF: 0 aspirin [Aspir-81] 81 mg Tablet,Delayed Release (Dr/Ec) 81 mg PO QAM RF: 0 metformin 1,000 mg Tablet 1,000 mg PO BID RF: 0 nitroglycerin 0.4 mg Tablet, Sublingual 0.4 mg Sublingual DIRECTED PRN (Reason: Chest Pain) RF: 0 metoprolol tartrate 25 mg Tablet 25 mg PO BID RF: 0 Januvia 100 mg Tablet 100 mg PO QPM RF: 0 omega 1-[id number]-[id number]-fish oil [Fish Oil] 1,000 mg (120 mg-180 mg) Capsule 1 cap PO QAM RF: 0 pravastatin 40 mg tablet 40 mg PO QPM RF: 0 pioglitazone 30 mg tablet 30 mg PO QAM RF: 0 Discontinued pantoprazole 40 mg tablet,delayed release (DR/EC) 40 mg PO QAM Qty: 30 RF: 0 ferrous sulfate 325 mg (65 mg iron) Tablet 325 mg PO DAILY RF: 0 Discharge Orders: Discharge Order (Routine); Ordered 03/29/19 Ordered By: Juan F Padilla/Other Patient Handouts: Hyperglycemia, Hypoglycemia, Diabetes Type 2 Coping, Diabetes Healthy Meals Admission Data Admit Date/Time: 03/25/19 17:12 Attending Provider: Juan F Sierra Admit Provider: Criselda López Primary Care Provider: Chapito Cano Other Providers: Criselda López ; Skyler Olsen ; Jameson Sanchez ; Hans Nguyễn ; Feliberto Villa ; William Elizabeth ; Bennett Coley ; Roly Ramey ; Roberth Greer ; Cristina Costa ; Frandy Wan ; Nicanor Eli ; Angelic Cohen ; Maude Stroud ; David Bustos ; Cb Johnson ; Juventino Rees. Other Interventions: Discharge Summary Assessment (RN) Last Done: 03/29/19 11:19 DC Date/Time DO NOT enter until pt leaves facility: 03/29/19 11:43
== END 2019-03-29 11:43 | disposition home or self-care (01) | DRG 378 ==
LOC: ED 12:51 → SUATTDRO 17:12 → 2E 17:12 → 1E 03-27 08:45 → 2S 03-28 15:55